=== PATIENT | female | born 1945 | race Caucasian/White ===

== ENCOUNTER → 2016-09-22 | Outpatient (CLI) | payer MEDICARE, OTHER, MEDICAID ==
[~2016-09-22] MED LIST: ALBU2.5V7 AEROSOL; ALEN70TA2 PO; AMIO100T4 PO; AMOX1TAB16 PO; ARFO15VI2 AEROSOL; BUDE0.5A6 INH; BUME0.5T11 PO; BUPR-115 PO; CALC-946 PO; CALC300T37 PO; CALC600T12 PO; CERA453C2 TOP; CRAN1TAB6 PO; CYAN10006 IM; DABI75CA3 PO; DIPH25TA23 PO; DOCU-175 PO; FAMO20TA8 PO; FLUV150C2 PO; GABA-338 PO; GABA-354 PO; GLIP5TAB11 PO; GUAI-1210 PO; HYDR-1372 PO; INSU100V36 SQ; LEVO125T11 PO; LISI2.5T2 PO; LOPE2TAB24 PO; LYSI500T3 PO; MELA1TAB15 PO; OMEP-122 PO; ONDA8TAB8 PO; PROC10TA PO; ROPI1TAB12 PO; SIMV20TA6 PO; SPIR25TA PO; SUCR1TAB PO; TRAM50TA4 PO; TRIA15CR3 TOP; ZOLP5TAB2 PO; [UNRECOGNIZED DRUG - CODE] TOP
[2016-09-22 07:06] LABS: BASOPHILS % (AUTO) 0.8 % (0-2); EOSINOPHILS # (AUTO) 0.4 T/MM3 (0-0.5); EOSINOPHILS % (AUTO) 8.8 % (0-4); HCT - HEMATOCRIT 35.6 % (36-46); HGB - HEMOGLOBIN 11.1 GM/DL (12-16); IMMATURE GRANULOCYTE # (AUTO) 0.01 T/MM3 (0.00-0.03); IMMATURE GRANULOCYTE % (AUTO) 0.2 % (0.0-0.5); LYMPHOCYTES # (AUTO) 1.1 T/MM3 (1-4.8); LYMPHOCYTES % (AUTO) 23.1 % (23-45); MEAN CORPUSCULAR HGB 30.8 UUG (26-34); MEAN CORPUSCULAR HGB CONC(MCHC 31.2 GM/DL (31-37); MEAN CORPUSCULAR VOLUME 98.9 UM3 (80-100); MONOCYTES # (AUTO) 0.6 T/MM3 (0-0.8); MONOCYTES % (AUTO) 11.2 % (0-9.0); NEUTROPHILS #(AUTO)-ABSOLUTE 2.7 T/MM3 (1.8-7.7); NEUTROPHILS % (AUTO) 55.9 % (33-66); WBC - WHITE BLOOD COUNT 4.9 T/MM3 (4.5-11.0)
[2016-09-22 07:26] LABS: ALBUMIN 3.4 G/DL (3.5-5.0); ALBUMIN/GLOBULIN RATIO 0.9 RATIO (1.1-2.2); ALKALINE PHOSPHATASE 137 U/L (38-126); ALT (SGPT) 32 U/L (9-52); ANION GAP 12 MEQ/L (5-15); AST (SGOT) 26 U/L (14-36); BUN/CREATININE RATIO 19 RATIO (6-26); CHLORIDE 104 MEQ/L (98-107); CO2 - CARBON DIOXIDE 27 MEQ/L (22-30); CREATININE 1.3 MG/DL (0.7-1.2); GLOMERULAR FILTRATION RATE 40; GLUCOSE 180 MG/DL (65-110); MAGNESIUM 2.2 MG/DL (1.6-2.3); POTASSIUM 4.1 MEQ/L (3.6-5); SODIUM 143 MEQ/L (134-144); TOTAL PROTEIN 7.1 G/DL (6.3-8.2)
== END ==
LOC: LABNH.AP 02:32
PROVIDERS: ATTEND Family Medicine
DX: N18.3 Chronic kidney disease, stage 3 (moderate) (principal); G25.81 Restless legs syndrome; E53.8 Deficiency of other specified B group vitamins; D53.9 Nutritional anemia, unspecified; I50.9 Heart failure, unspecified
CPT/HCPCS: 36415; 80053; 82306; 82607; 83735; 85025; P9604

== ENCOUNTER → 2016-10-13 | Outpatient (CLI) | payer MEDICARE, OTHER, MEDICAID ==
[2016-10-13 07:37] LABS: BASOPHILS % (AUTO) 0.4 % (0-2); EOSINOPHILS # (AUTO) 0.4 T/MM3 (0-0.5); EOSINOPHILS % (AUTO) 7.7 % (0-4); HCT - HEMATOCRIT 32.9 % (36-46); HGB - HEMOGLOBIN 10.2 GM/DL (12-16); IMMATURE GRANULOCYTE # (AUTO) 0.02 T/MM3 (0.00-0.03); IMMATURE GRANULOCYTE % (AUTO) 0.4 % (0.0-0.5); MEAN CORPUSCULAR HGB 30.5 UUG (26-34); MEAN CORPUSCULAR VOLUME 98.5 UM3 (80-100); MEAN PLATELET VOLUME 11.9 UM3 (9.4-12.4); MONOCYTES # (AUTO) 0.5 T/MM3 (0-0.8); MONOCYTES % (AUTO) 11.7 % (0-9.0); NEUTROPHILS #(AUTO)-ABSOLUTE 2.6 T/MM3 (1.8-7.7); NEUTROPHILS % (AUTO) 56.8 % (33-66); RED BLOOD COUNT 3.34 M/MM3 (4.00-5.20); WBC - WHITE BLOOD COUNT 4.5 T/MM3 (4.5-11.0)
[2016-10-13 07:52] LABS: ANION GAP 11 MEQ/L (5-15); BUN/CREATININE RATIO 19 RATIO (6-26); CALCIUM 8.6 MG/DL (8.4-10.2); CHLORIDE 106 MEQ/L (98-107); CO2 - CARBON DIOXIDE 26 MEQ/L (22-30); CREATININE 1.3 MG/DL (0.7-1.2); GLOMERULAR FILTRATION RATE 40; GLUCOSE 164 MG/DL (65-110); POTASSIUM 3.8 MEQ/L (3.6-5); SODIUM 143 MEQ/L (134-144)
[2016-10-13 08:14] LABS: HEMOGLOBIN A1C 6.1 % (6.1-7.9)
== END ==
LOC: LABNH.AP 00:36
PROVIDERS: ATTEND Internal Medicine Hematology & Oncology
DX: E11.9 Type 2 diabetes mellitus without complications (principal); D53.9 Nutritional anemia, unspecified; D63.1 Anemia in chronic kidney disease; E87.6 Hypokalemia
CPT/HCPCS: 36415; 80048; 83036; 85025; P9604

== ENCOUNTER → 2016-10-20 | Outpatient (CLI) | payer MEDICARE, OTHER, MEDICAID | LOC: NEU 13:48 | PROVIDERS: ATTEND Psychiatry & Neurology Neurology | DX: E11.42 Type 2 diabetes mellitus with diabetic polyneuropathy (principal); G56.03 Carpal tunnel syndrome, bilateral upper limbs; Z79.4 Long term (current) use of insulin | CPT/HCPCS: 95886; 95912 ==

== ENCOUNTER → 2016-11-08 | Outpatient (CLI) | payer MEDICARE, OTHER, MEDICAID ==
[2016-11-08 21:10] LABS: BLOOD, URINE NEGATIVE (NEGATIVE); COLOR,URINE YELLOW (YELLOW); LEUKOCYTE ESTERASE ,URINE NEGATIVE (NEGATIVE); NITRITE,URINE POSITIVE (NEGATIVE)
[2016-11-08 21:30] LABS: BACTERIA,URINE 3+ (NEGATIVE); RBC,URINE 0-1 /HPF (0-3); SQUAMOUS EPITHELIAL CELL,UR NONE SEEN
== END ==
LOC: LABN.AP 21:05
PROVIDERS: ATTEND Family Medicine
DX: R35.0 Frequency of micturition (principal)
CPT/HCPCS: 81001; 87077; 87086; 87186

== ENCOUNTER → 2016-11-10 | Outpatient (CLI) | payer MEDICARE, OTHER, MEDICAID ==
[2016-11-10 09:14] LABS: BASOPHILS % (AUTO) 0.4 % (0-2); EOSINOPHILS # (AUTO) 0.5 T/MM3 (0-0.5); EOSINOPHILS % (AUTO) 11.8 % (0-4); HGB - HEMOGLOBIN 10.9 GM/DL (12-16); IMMATURE GRANULOCYTE # (AUTO) 0.01 T/MM3 (0.00-0.03); IMMATURE GRANULOCYTE % (AUTO) 0.2 % (0.0-0.5); LYMPHOCYTES # (AUTO) 0.9 T/MM3 (1-4.8); LYMPHOCYTES % (AUTO) 18.6 % (23-45); MEAN CORPUSCULAR HGB 31.1 UUG (26-34); MEAN CORPUSCULAR HGB CONC(MCHC 31.1 GM/DL (31-37); MEAN PLATELET VOLUME 11.9 UM3 (9.4-12.4); MONOCYTES # (AUTO) 0.5 T/MM3 (0-0.8); MONOCYTES % (AUTO) 11.8 % (0-9.0); NEUTROPHILS #(AUTO)-ABSOLUTE 2.6 T/MM3 (1.8-7.7); NEUTROPHILS % (AUTO) 57.2 % (33-66); WBC - WHITE BLOOD COUNT 4.6 T/MM3 (4.5-11.0)
[2016-11-10 09:21] LABS: ALBUMIN 3.4 G/DL (3.5-5.0); ALBUMIN/GLOBULIN RATIO 0.9 RATIO (1.1-2.2); ALKALINE PHOSPHATASE 163 U/L (38-126); ALT (SGPT) 37 U/L (9-52); AST (SGOT) 29 U/L (14-36); TOTAL PROTEIN 7.1 G/DL (6.3-8.2)
== END ==
LOC: LABNH.AP 00:30
PROVIDERS: ATTEND Internal Medicine Hematology & Oncology
DX: D53.9 Nutritional anemia, unspecified (principal); D63.1 Anemia in chronic kidney disease; E78.5 Hyperlipidemia, unspecified
CPT/HCPCS: 36415; 80076; 85025; P9604

== ENCOUNTER → 2016-11-17 | Outpatient (CLI) | payer MEDICARE, OTHER, MEDICAID ==
[2016-11-17 08:08] LABS: BASOPHILS % (AUTO) 0.5 % (0-2); EOSINOPHILS # (AUTO) 0.4 T/MM3 (0-0.5); EOSINOPHILS % (AUTO) 7.2 % (0-4); HCT - HEMATOCRIT 36.7 % (36-46); HGB - HEMOGLOBIN 11.1 GM/DL (12-16); IMMATURE GRANULOCYTE # (AUTO) 0.01 T/MM3 (0.00-0.03); IMMATURE GRANULOCYTE % (AUTO) 0.2 % (0.0-0.5); LYMPHOCYTES # (AUTO) 1.5 T/MM3 (1-4.8); LYMPHOCYTES % (AUTO) 25.7 % (23-45); MEAN CORPUSCULAR HGB 30.6 UUG (26-34); MEAN CORPUSCULAR HGB CONC(MCHC 30.2 GM/DL (31-37); MEAN CORPUSCULAR VOLUME 101.1 UM3 (80-100); MEAN PLATELET VOLUME 12.3 UM3 (9.4-12.4); MONOCYTES # (AUTO) 0.6 T/MM3 (0-0.8); MONOCYTES % (AUTO) 10.2 % (0-9.0); NEUTROPHILS #(AUTO)-ABSOLUTE 3.2 T/MM3 (1.8-7.7); NEUTROPHILS % (AUTO) 56.2 % (33-66); RED BLOOD COUNT 3.63 M/MM3 (4.00-5.20); WBC - WHITE BLOOD COUNT 5.7 T/MM3 (4.5-11.0)
== END ==
LOC: LABNH.AP 00:14
PROVIDERS: ATTEND Family Medicine
DX: E11.9 Type 2 diabetes mellitus without complications (principal)
CPT/HCPCS: 36415; 83036; 85025; P9604

== ENCOUNTER 2017-02-11 16:38 | Inpatient (IN) ==
--- NOTE | 2017-02-11 16:56 | Emergency Department Report ---
General Adult HPI - General Chief complaint: Shortness of Breath/Dyspnea Stated complaint: SOA,Low Blood Sugar Time Seen by Provider: 02/11/17 16:56 Source: patient Mode of arrival: EMS Limitations: no limitations - History of Present Illness HPI narrative: Patient presents from a local nursing facility due to increased difficulty breathing, dyspnea and ongoing UTI. Patient also had episode of hypoglycemia today inspite of normal po intake. Patient takes glipizide which she had this AM but states she ate today. She had reported low blood sugar throughout the day which responded with po intake EMS recorded a blood sugar ORE DIGGER of 38 which responded with 1/2 amp D50 and blood sugar 108. Blood sugar shortly after is 74. Patient is alert and oriented upon arrival but is obviously dyspneic with conversing. Her room air sats are mid 90's . She is speaking in 4 word sentences. Denies chest pain. MD complaint: low blood sugar, dyspnea, - Related Data Home Medications Medication Instructions Recorded Confirmed Arformoterol Neb [Brovana Neb] 15 mcg AEROSOL BID #0 09/19/12 02/11/17 Levothyroxine Sodium 125 mcg PO DAILY #0 06/03/14 02/11/17 Simvastatin 20 mg PO HS #0 06/03/14 02/11/17 Spironolactone [Aldactone] 25 mg PO DAILY #0 12/26/14 02/11/17 Triamcinolone 0.25% Cream 15G 1 applic TOP DAILY PRN #0 12/26/14 02/11/17 [Kenalog] Alendronate Sodium [Fosamax] 70 mg PO QFRIDAY #0 05/18/15 02/11/17 Dabigatran Etexilate Mesylate 75 mg PO BID #0 05/18/15 02/11/17 [Pradaxa] Amiodarone HCl 100 mg PO DAILY #0 07/18/15 02/11/17 Cyanocobalamin (B-12) [Vit. B-12] 1,000 mcg IM MONTHLY #0 07/18/15 02/11/17 Albuterol Sulfate 2.5 mg AEROSOL Q4H PRN #0 10/10/15 02/11/17 Tramadol HCl 50 mg PO Q6HR PRN #0 10/10/15 02/11/17 Gabapentin 300 mg PO TID #0 02/03/16 02/11/17 Ondansetron [Zofran Odt] 8 mg PO Q8H PRN #0 02/03/16 02/11/17 buPROPion HCl [Wellbutrin Xl] 150 mg PO DAILY #0 02/03/16 02/11/17 glipiZIDE [Glipizide] 5 mg PO BID #0 02/03/16 02/11/17 Ceramides 1,3,6-11 [Cerave] 1 applic TOP TUFR #0 02/10/16 02/11/17 Gabapentin 400 mg PO BID #0 02/10/16 02/11/17 Loperamide HCl [Loperamide] 2 mg PO Q6H PRN #0 02/10/16 02/11/17 Lysine 1,000 mg PO QID PRN #0 02/10/16 02/11/17 Melatonin/Pyridoxine HCl (B6) 1 mg PO HS PRN #0 02/10/16 02/11/17 [Melatonin 1 mg Tablet] Urea/Allantoin/Vit E Acetate 1 applic TOP HS #0 02/10/16 02/11/17 [Flexitol Heel [place] Cream] diphenhydrAMINE HCl 25 mg PO Q6H PRN #0 02/10/16 02/11/17 [Diphenhydramine HCl] Acetaminophen 650 mg PO Q4H PRN 02/11/17 02/11/17 Budesonide [Budesonide] 0.5 mg AEROSOL Q12H 02/11/17 02/11/17 CALCIUM CARBONATE Chewable [Tums 750 mg PO QID PRN 02/11/17 02/11/17 Extra Strength] Calcium Carbonate/Vitamin D3 1 tab PO DAILY 02/11/17 02/11/17 [Caltrate 600 Plus D3 Tablet] Citalopram [Celexa] 30 mg PO DAILY 02/11/17 02/11/17 Fluticasone Nasal [place] [Flonase] 1 spray EA NOSTRIL DAILY 02/11/17 02/11/17 Furosemide [Lasix] 20 mg PO DAILY 02/11/17 02/11/17 Lidocaine/Prilocaine [EMLA 5gm] 1 applic TOP QID 02/11/17 02/11/17 Nystatin Powder [Mycostatin] 1 applic TP BID PRN 02/11/17 02/11/17 Nystatin Powder [Mycostatin] 1 applic TP TID 02/11/17 02/11/17 Pantoprazole Tab [Protonix Tab] 40 mg PO DAILY 02/11/17 02/11/17 Ropinirole HCl 1 mg PO BID 02/11/17 02/11/17 Sulfamethox/Tmp [Bactrim Ds] 1 tab PO Q12H 02/11/17 02/11/17 Trazodone [Desyrel] 25 mg PO BID PRN 02/11/17 02/11/17 guaiFENesin [Mucinex] 1,200 mg PO Q12H PRN 02/11/17 02/11/17 Allergies Allergy/AdvReac Type Severity Reaction Status Date / Time diltiazem Allergy Unknown Verified 02/11/17 17:12 flecainide Allergy Unknown PATIENT Verified 02/11/17 17:12 DENIES nitrofurantoin Allergy Unknown ITCHING Verified 02/11/17 17:12 oxycodone AdvReac Intermediate Hallucinati Verified 02/11/17 17:13 ng PFS Patient Stated Medical History Cerebrovascular Accident Yes: 2015 Other HEENT Yes: WEARS GLASSES Cardiac Arrhythmia Yes: AFIB Congestive Heart Failure Yes Coronary Artery Disease Yes Other Cardiology Yes: VARICOSE VEIN STRIPPING Asthma Yes Bronchitis Yes Chronic Obstructive Pulmonary Yes Disease (COPD) Pneumonia Yes Sleep Apnea Yes Diabetes Mellitus Type 2 Yes Gastroesophageal Reflux Yes Disease Hiatal Hernia Yes Hx Incontinence Yes Hx Renal Disease Yes Hx Urinary Tract Infection Yes Anemia Yes Osteoarthritis Yes Other Yes: POSSIBLE LEUKEMIA Depression Yes Physical Exam - Limitations Limitations: no limitations - General General appearance: alert - Normal Exams: Head:: Normocephalic without trauma Eyes:: Pupils are PERRLA w/ EOMI, No scleral icterus, irritation, or foreign bodies noted ENMT:: No facial trauma, nasal exudates, pharyngeal erythema, or exudates are noted Neck:: Full range of motion, without adenopathy, JVD, bruits or thyromegaly Lymphatic:: No lymphadenopathy, or lymphedema noted Musculoskeletal:: No tenderness, or deformity noted, good range of motion, all extremities Integumentary:: No rashes, hives, or bruising noted, hair and nails, without abnormality Psychiatric:: Patient exhibits, appropriate attention, emotion and affect - Respiratory Respiratory exam: Present: other (patient appears dyspneic, lungs have crackles bilaterall posteriorly with exp wheezing ) - Rectal Exam Rectal exam: Present: normal inspection, normal rectal tone, heme (-) stool Course - Reevaluation(s) Reevaluation #1: Blood sugar after snack of crackers and peanut butter 111. Sats remain at 95 % room air. CXR indicates CHF exacerbation compared to prior xray and BNP is 2200. Bumex [address] Gonzalez is aware of findings and agrees with treatment plan. Patient has chronic anemia - Consultations Consultation #1: Dr Huff, will admit patient for exacerbation of CHF, dyspnea Vital Signs Temperature 97.2 F 02/11/17 16:40 Pulse Rate 67 02/11/17 16:40 Respiratory Rate 25 H 02/11/17 16:40 Blood Pressure 110/45 02/11/17 16:40 Pulse Oximetry 93 02/11/17 16:40 Temperature 98.4 F 02/11/17 23:44 Pulse Rate 69 02/11/17 23:44 Respiratory Rate 22 02/11/17 23:44 Blood Pressure 112/55 02/11/17 23:44 Pulse Oximetry 94 02/11/17 23:44 Medical Decision Making - Lab Data Result diagrams: 02/11/17 17:17 02/11/17 17:17 Lab Results 02/11/17 02/11/17 02/11/17 Range/Units 16:50 17:17 17:17 WBC 7.1 (4.5-11.0) T/MM3 RBC 2.68 L (4.00-5.20) M/MM3 Hgb 8.3 L (12-16) GM/DL Hct 27.5 L (36-46) % MCV 102.6 H (80-100) UM3 MCH 31.0 (26-34) UUG MCHC 30.2 L (31-37) GM/DL RDW Std Deviation 50.9 H (36.9-50.2) FL Plt Count 161 (130-400) T/MM3 MPV 10.8 (9.4-12.4) UM3 Immature Gran % (Auto) 0.3 (0.0-0.5) % Neut % (Auto) 77.8 H (33-66) % Lymph % (Auto) 10.5 L (23-45) % [place] % (Auto) 10.7 H (0-9.0) % Eos % (Auto) 0.6 (0-4) % Baso % (Auto) 0.1 (0-2) % Neut # 5.5 (1.8-7.7) T/MM3 Lymph # 0.8 L (1-4.8) T/MM3 [place] # 0.8 (0-0.8) T/MM3 Eos # 0.0 (0-0.5) T/MM3 Baso # 0.0 (0-0.2) T/MM3 Abs Immat Gran (auto) 0.02 (0.00-0.03) T/MM3 Turbidity < 20 (0-20) Sodium 140 (134-144) MEQ/L Potassium 4.0 (3.6-5) MEQ/L Chloride 105 (98-107) MEQ/L Carbon Dioxide 25 (22-30) MEQ/L Anion Gap 10 (5-15) MEQ/L BUN 22.0 H (7-17) MG/DL Creatinine 1.8 H (0.7-1.2) MG/DL GFR Calculation 28 BUN/Creatinine Ratio 12 (6-26) RATIO Glucose 74 (65-110) MG/DL Glucometer 108 (65-110) mg/dL Calculated Osmolality 271 (261-280) MOSM/KG Calcium 8.0 L (8.4-10.2) MG/DL Total Bilirubin 0.50 (0.20-1.30) MG/DL Icterus Index < 2 (0-7) AST 23 (14-36) U/L ALT 33 (9-52) U/L Alkaline Phosphatase 159 H (38-126) U/L Troponin I < 0.012 (0-0.12) ng/ml B-Natriuretic Peptide 2220 H (0-175) pg/mL Total Protein 7.0 (6.3-8.2) G/DL Albumin 3.4 L (3.5-5.0) G/DL Globulin 3.6 (2.4-3.6) G/DL Albumin/Globulin Ratio 0.9 L (1.1-2.2) RATIO Specimen Hemolysis < 15 (0-25) Ur Collection Type Urine Color (YELLOW) Urine Clarity Urine pH (5.0-8.0) Ur Specific [place] (1.015-1.025) Urine Protein (NEGATIVE) Urine Glucose (UA) (NEGATIVE) Urine Ketones (NEGATIVE) Urine Occult Blood (NEGATIVE) Urine Nitrate (NEGATIVE) Urine Bilirubin (NEGATIVE) Urine Urobilinogen (NORMAL) EU/DL Ur Leukocyte Esterase (NEGATIVE) Urine RBC (0-3) /HPF Urine WBC (0-5) /HPF Ur Squamous Epith Cells Urine Bacteria (NEGATIVE) Ur Culture Indicated? 02/11/17 02/11/17 02/11/17 Range/Units 17:23 17:43 18:23 WBC (4.5-11.0) T/MM3 RBC (4.00-5.20) M/MM3 Hgb (12-16) GM/DL Hct (36-46) % MCV (80-100) UM3 MCH (26-34) UUG MCHC (31-37) GM/DL RDW Std Deviation (36.9-50.2) FL Plt Count (130-400) T/MM3 MPV (9.4-12.4) UM3 Immature Gran % (Auto) (0.0-0.5) % Neut % (Auto) (33-66) % Lymph % (Auto) (23-45) % [place] % (Auto) (0-9.0) % Eos % (Auto) (0-4) % Baso % (Auto) (0-2) % Neut # (1.8-7.7) T/MM3 Lymph # (1-4.8) T/MM3 [place] # (0-0.8) T/MM3 Eos # (0-0.5) T/MM3 Baso # (0-0.2) T/MM3 Abs Immat Gran (auto) (0.00-0.03) T/MM3 Turbidity (0-20) Sodium (134-144) MEQ/L Potassium (3.6-5) MEQ/L Chloride (98-107) MEQ/L Carbon Dioxide (22-30) MEQ/L Anion Gap (5-15) MEQ/L BUN (7-17) MG/DL Creatinine (0.7-1.2) MG/DL GFR Calculation BUN/Creatinine Ratio (6-26) RATIO Glucose (65-110) MG/DL Glucometer 85 111 (65-110) mg/dL Calculated Osmolality (261-280) MOSM/KG Calcium (8.4-10.2) MG/DL Total Bilirubin (0.20-1.30) MG/DL Icterus Index (0-7) AST (14-36) U/L ALT (9-52) U/L Alkaline Phosphatase (38-126) U/L Troponin I (0-0.12) ng/ml B-Natriuretic Peptide (0-175) pg/mL Total Protein (6.3-8.2) G/DL Albumin (3.5-5.0) G/DL Globulin (2.4-3.6) G/DL Albumin/Globulin Ratio (1.1-2.2) RATIO Specimen Hemolysis (0-25) Ur Collection Type Urine, clean catch Urine Color Yellow (YELLOW) Urine Clarity Clear Urine pH 5.5 (5.0-8.0) Ur Specific [place] 1.015 (1.015-1.025) Urine Protein Negative (NEGATIVE) Urine Glucose (UA) Negative (NEGATIVE) Urine Ketones Negative (NEGATIVE) Urine Occult Blood Negative (NEGATIVE) Urine Nitrate Positive A (NEGATIVE) Urine Bilirubin Negative (NEGATIVE) Urine Urobilinogen 1.0 (NORMAL) EU/DL Ur Leukocyte Esterase Negative (NEGATIVE) Urine RBC None seen (0-3) /HPF Urine WBC 1-3 (0-5) /HPF Ur Squamous Epith Cells 0-5 Urine Bacteria 3+ H (NEGATIVE) Ur Culture Indicated? Cult reflexed &setup Disposition Clinical Impression: Congestive heart failure Qualifiers: Congestive heart failure type: unspecified congestive heart failure type Congestive heart failure chronicity: acute on chronic Qualified Code(s): I50.9 - Heart failure, unspecified Hypoglycemia secondary to sulfonylurea Qualifiers: Encounter type: initial encounter Injury intent: undetermined intent Qualified Code(s): T38.3X4A - Poisoning by insulin and oral hypoglycemic [antidiabetic] drugs, undetermined, initial encounter Anemia Qualifiers: Anemia type: unspecified type Qualified Code(s): D64.9 - Anemia, unspecified Disposition: 02 To [facility] Acute Care Condition: Stable Time of Disposition: 18:47 - Seen By: midlevel
[2017-02-11] MEDS ORDERED: ALBUTEROL/IPRATROPIUM 2.5mg-0.5mg/3ml NEB IH ONE (17:07)
[2017-02-11] MEDS ORDERED: BUMETANIDE 2.5mg/10ml INJECTION IVP ONE (18:06)
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
[2017-02-11] MEDS ORDERED: ACETAMINOPHEN 325 MG TABLET PO PRN (20:29)
[2017-02-11] MEDS ORDERED: HEPARIN 5,000unit/ml 1ml INJECTION SUB-Q SCH (20:29)
[2017-02-11] MEDS ORDERED: MORPHINE SULFATE 2 MG SYRINGE IVP PRN (20:29)
[2017-02-11] MEDS ORDERED: CALCIUM CARBONATE Chewable 500mg TABLET PO PRN (20:29)
[2017-02-11] MEDS ORDERED: SENNA + DOCUSATE TABLET PO PRN (20:29)
[2017-02-11] MEDS ORDERED: GUAIFENESIN LA 600 MG TABLET PO PRN (22:28)
[2017-02-11] MEDS ORDERED: TRIAMCINOLONE 0.025% CREAM 15 G TUBE TOP PRN (22:28)
[2017-02-11] MEDS ORDERED: MELATONIN 1 MG TABLET PO PRN (22:28)
[2017-02-11] MEDS ORDERED: LYSINE 500 MG TABLET PO PRN (22:28)
[2017-02-11] MEDS ORDERED: CALCIUM CARBONATE Chewable 750mg TABLET PO PRN (22:28)
[2017-02-11] MEDS ORDERED: DiphenhydrAMINE 25 MG CAPSULE PO PRN (22:28)
[2017-02-11] MEDS ORDERED: ALBUTEROL 2.5mg/3ml (0.083%) NEB AEROSOL PRN (22:28)
[2017-02-11] MEDS ORDERED: TRAZODONE 50 MG TABLET PO PRN (22:28)
[2017-02-11] MEDS ORDERED: LOPERAMIDE 2 MG CAPSULE PO PRN (22:28)
[2017-02-11] MEDS: BUDESONIDE INH.SOLN 0.5mg/2ml NEB AEROSOL SCH (22:41)
[2017-02-11] MEDS: ALBUTEROL/IPRATROPIUM 2.5mg-0.5mg/3ml NEB AEROSOL PRN (22:42)
[2017-02-11] MEDS ORDERED: ONDANSETRON 4 MG/2 ML INJECTION IVP PRN (23:34)
[2017-02-12] MEDS: BUDESONIDE INH.SOLN 0.5mg/2ml NEB AEROSOL SCH ×2 (08:39→20:44)
[2017-02-12] MEDS: ALBUTEROL/IPRATROPIUM 2.5mg-0.5mg/3ml NEB AEROSOL PRN ×2 (08:39→20:45)
[2017-02-12] MEDS ORDERED: DABIGATRAN 75 MG PO SCH (09:00)
[2017-02-12] MEDS: CITALOPRAM 20 MG TABLET PO SCH (09:13)
[2017-02-12] MEDS: CEFPODOXIME 200mg TABLET PO SCH ×2 (09:14→18:05)
[2017-02-12] MEDS: BuPROPion XL 150mg (24HR) TABLET PO SCH (09:14)
[2017-02-12] MEDS: CALCIUM 600 + VIT D 400 TABLET PO SCH (09:14)
[2017-02-12] MEDS: GABAPENTIN 300 MG CAPSULE PO SCH ×3 (09:14→20:18)
[2017-02-12] MEDS: ROPINIROLE 1 MG TABLET PO SCH ×2 (09:14→20:18)
[2017-02-12] MEDS: AMIODARONE 200 MG TABLET PO SCH (09:15)
[2017-02-12] MEDS: FLUTICASONE NASAL SPRAY 50mcg EA NOSTRIL SCH (09:16)
[2017-02-12] MEDS: SPIRONOLACTONE 25 MG TABLET PO SCH (09:16)
[2017-02-12] MEDS: LEVOTHYROXINE 125 MCG TABLET PO SCH (09:26)
[2017-02-12] MEDS: FUROSEMIDE 40 MG/4 ML INJECTION IVP SCH ×2 (09:29→18:05)
[2017-02-12] MEDS: CERAMIDES PO SCH (09:42)
--- NOTE | 2017-02-12 10:30 | XRay Report ---
Indication: chf follow up XR chest 2V: Comparison: 02/11 2017 Technique: 2 view chest Findings: Patient continues to show mild cardiac prominence. This is remains similar to the previous study. Patient also shows mildly increased basilar pulmonary markings without focal prequel consolidations or significant pleural effusions. Mild rotoscoliosis persists. Postoperative changes are identified below the diaphragm in the left upper quadrant. Impression: Continued mild cardiac prominence with increased basilar pulmonary markings which are similar to prior exam. .
[2017-02-12] MEDS: ARFORMOTEROL NEB 15mcg/2ml AEROSOL SCH (10:34)
[2017-02-12] MEDS: LIDOCAINE 2.5%/PRILOCAINE 2.5% CREAM 5gm TOP SCH ×4 (10:42→20:18)
[2017-02-12] MEDS ORDERED: D10W 250 ML IV SCH (11:29)
[2017-02-12] MEDS ORDERED: CYANOCOBALAMIN (B-12) 1,000mcg/ml INJECTION IM SCH (12:00)
[2017-02-12] MEDS: D10W 1,000 ML IV SCH (13:46)
[2017-02-12] MEDS ORDERED: FALL RISK - PHARMACY CONSULT XX ONE (15:55)
[2017-02-12] MEDS ORDERED: GLUCOSE ORAL GEL 40% 37.5gm PO PRN (17:31)
[2017-02-12] MEDS ORDERED: DEXTROSE 50% SYRINGE 50ml (1 AMP) IVP PRN (17:31)
[2017-02-12] MEDS: SIMVASTATIN 20 MG TABLET PO SCH ×2 (20:18→21:02)
[2017-02-12] MEDS ORDERED: [UNRECOGNIZED DRUG - OTHER] PO SCH (22:00)
[2017-02-13] MEDS: LEVOTHYROXINE 125 MCG TABLET PO SCH (06:03)
[2017-02-13] MEDS: ACETAMINOPHEN 325 MG TABLET PO PRN ×2 (08:24→15:08)
[2017-02-13] MEDS: SALINE FLUSH 10ml SYRINGE IVF PRN ×2 (09:01→16:47)
[2017-02-13] MEDS: FLUTICASONE NASAL SPRAY 50mcg EA NOSTRIL SCH (09:01)
[2017-02-13] MEDS: FUROSEMIDE 40 MG/4 ML INJECTION IVP SCH ×2 (09:01→16:47)
[2017-02-13] MEDS: BuPROPion XL 150mg (24HR) TABLET PO SCH (09:02)
[2017-02-13] MEDS: AMIODARONE 200 MG TABLET PO SCH (09:02)
[2017-02-13] MEDS: CEFPODOXIME 200mg TABLET PO SCH (09:02)
[2017-02-13] MEDS: CALCIUM 600 + VIT D 400 TABLET PO SCH (09:02)
[2017-02-13] MEDS: CITALOPRAM 20 MG TABLET PO SCH (09:02)
[2017-02-13] MEDS: GABAPENTIN 300 MG CAPSULE PO SCH ×3 (09:02→21:46)
[2017-02-13] MEDS: SPIRONOLACTONE 25 MG TABLET PO SCH (09:02)
[2017-02-13] MEDS: ROPINIROLE 1 MG TABLET PO SCH ×2 (09:02→21:46)
[2017-02-13] MEDS: LIDOCAINE 2.5%/PRILOCAINE 2.5% CREAM 5gm TOP SCH (10:15)
[2017-02-13] MEDS: D10W 1,000 ML IV SCH (10:41)
[2017-02-13] MEDS: AMOX/CLAV 500 MG/125 MG TABLET PO SCH ×2 (10:46→16:47)
[2017-02-13] MEDS: TRAMADOL 50 MG TABLET PO PRN ×3 (10:47→22:56)
--- NOTE | 2017-02-13 14:42 | CT Scan Report ---
Indication: Class IV CHF symptoms with normal LVEF in a pt with COPD CT chest high res: Comparison: Chest radiograph 02/12/2017 Technique: Nonenhanced axial imaging provided with dose reduction imaging technology from above the thoracic inlet to below the diaphragms. Reformatted sagittal and coronal images are provided. Findings: Patient demonstrates normal heart size. Lungs failed to show significant acute abnormality. Very minimal increased basilar markings are seen which could represent either minimal atelectasis or scarring. No typical pattern of interstitial pulmonary fibrosis is identified. No pleural reaction or bronchiectasis noted. No masses or significant consolidations are seen. No pathologic adenopathy is seen. Patient shows postoperative changes involving the upper abdomen. Reformatted imaging showed rotoscoliosis and degenerative changes in the thoracolumbar spine with bridging osteophytes and multilevel degenerative disc changes. No acute vertebral body fractures identified. Impression: 1. Patient is only mild chronic appearing changes in the bases with no significant mass, consolidation or significant suggestion of pulmonary fibrosis. 2. Significant postoperative changes in the upper abdomen. .
--- NOTE | 2017-02-13 14:58 | Progress Note ---
Subjective: Pt is still fairly SOB. I asked her to walk a bit with me. Her resting HR was 48 to 50. Pt is anemic. The only negative inotrope is Amiodarone. Pt ambulated about 60 feet. First 30, had to stop due to SOB - her HR was up to 73 then she walked back to bed, her HR quickly came back to the 50's Objective Vital signs: Temperature 97.7 F 02/13/17 08:00 Pulse Rate 53 L 02/13/17 08:00 Respiratory Rate 18 02/13/17 09:52 Blood Pressure 129/69 02/13/17 08:00 Pulse Oximetry 93 02/13/17 09:52 Oxygen Delivery Method Room Air Rhythm: Sinus Bradycardia Weight: 93.3 kg - Constitutional Present: mild distress - Routine HEENT Exam Head: Present: normocephalic, atraumatic Eye: Present: EOMI, PERRL - Routine Respiratory Exam Present: dyspnea - Routine Cardiovascular Exam Present: RRR - Routine Abdominal Exam Present: soft, non distended, non tender - Routine Extremities Exam Absent: cyanosis, clubbing, edema - Routine Neurological Exam Present: alert, oriented X3, CN II-XII intact - Routine Psychiatric Exam Present: normal affect Results - Labs CBC & Chem 7: 02/13/17 04:01 02/13/17 04:01 - ABG Interpretation ABG results: 02/11/17 02/13/17 23:43 05:04 ABG pH 7.450 ABG pCO2 42 ABG pO2 78 L ABG HCO3 29 H ABG Total CO2 30.5 H ABG O2 Saturation 96.0 ABG Base Excess 4.7 H VBG pH 7.480 H VBG pCO2 34 L VBG pO2 69 H VBG HCO3 25 VBG Total CO2 26.3 VBG O2 Saturation 95.0 VBG Base Excess 2.1 H Assessment and Plan (1) Congestive heart failure Current visit: Yes Status: Acute this appears acute, i'm unclear if systolic or diastolic. she is receiving 1 mg of bumex iv in the emergency room. we'll order lasix 40 mg iv every 12 hours, the next dose to be in the late evening tonight. echocardiogram should be performed when he can, probably won't be able to do this weekend. daily weights, dietary review. rule out mi with serial enzymes, tele. She has confounding issues of elevated creatinine from baseline kidney dz and Bactrim. She has lung dx (probably from 2nd hand smoke expsure) and recently untreated SWATI. Will give more lasix tomorrow am but leery of creat worsening. This could be multifactorial [place] and not just simply CHF (probably is) 02/11/17 19:24 02/12/17 00:11 (2) Hypoglycemia secondary to sulfonylurea Current visit: Yes Status: Acute 02/12/17 00:16 i suspect this is worse because of her increased creatinine couple with probably a bit high of a dose for her. 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 she receives iron infusions approximately monthly, sounds like she had a couple in the past month. this is probably stable 02/12/17 00:13 (4) DMII (diabetes mellitus, type 2) Current visit: Yes Status: Acute 02/11/17 19:20 accu-cheks before meals and at bedtime with correctional insulin if needed, like to avoid dextrose infusion if we can with her fluid issues. check a1c we haven't in a while (5) Acute renal failure Current visit: Yes Status: Acute 02/11/17 19:31 will need to monitor her creatinine closely with diuresis. her creatinine is probably elevated from the bactrim dosing.could be related with exacerbation, as well as her hypoglycemia. probably should not prescribe further oral hypoglycemic agents with elevated creatinine 71-year-old female. 02/12/17 00:17 (6) CKD (chronic kidney disease) stage 3, GFR 30-59 ml/min Current visit: Yes Status: Acute (7) Afib Current visit: Yes Status: Acute 02/12/17 00:17 continue amiodarone, hold pradaxa with creat cl less than 30, would consider other like eliquis with age, renal dz (8) CAD (coronary artery disease) Current visit: Yes Status: Acute (9) COPD (chronic obstructive pulmonary disease) Current visit: Yes Status: Acute 02/12/17 00:18 continue her nebulizers treatments along with her inhalers, is probably somewhat contributory to her shortness of breath in addition to relatively untreated sleep apnea and the congestive heart failure. i don't think this is worth giving steroids through the iv or prednisone at this point. (10) SWATI (obstructive sleep apnea) Current visit: Yes Status: Acute Assessment and Plan: Summary - Andressa is a 71 YO female with H.O CHF that came with symptoms suggestive of worsening CHF. She also has chronic anemia. She states she has "the beggining stages of COPD". Her 2-D echo did not show L ventricular dysfunction. Diagnosis 1) Dyspnea on exertion - severely limiting her activities. Does not appear to be caused by CHF or by lung disease (reports are pending) a) CHF - Per verbal report of 2-D echo pt LVEF is normal - Pt is on Amidarone and despite the fact she is anemic she will not get tachycardic with activiy. She will first get very dyspneic. - Suspect her SOB is multifactorial with inability to increase her HR - probably related to Amidarone - a part of this. I have STOPPED HER AMIODARONE. Please watch for tachycardia (Unlikely due to very long half life of amiodarone ) - HRCT - No report - I do not see any obvious abnormalities, of course if pt has amiodarone lung disease, pulm fibrosis or other causes to explain her SOB she would need appropriate therapy. - Final reports of CT chest and Echo pending. b) COPD - Get old records, consider checking PFT's 2) CKD ? pt with chronic anemia. - Check Erythropoietin level - due to her chronic anemia. 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 4) UTI - Due to E Coli sensitive to Augmentin - Culture is final now. - Placed on Augmentin x 5 days. 5) Polypharmacy (Since admission 13 medications have been stopped) - MEDS STOPPED ON 02/13 - Today EMLA was stopped - pt stated did not know why she was on this and Amiodarone was stopped. - MEDS STOPPED ON 02/12 1) Tylenol - duplicated 2) Albuterol and Duonebs 3) Brovana - stopped. 4) Calcium - 3 different doses - cancelled 2 5) Nystatin - 2 orders cancelled 1 6) Pt is on both laxative (Senna) and Antimotility agents - Loperamide - Stopped both 7) Pt is on 2 different emolient creams - Ceramides and Urea lotion - stopped urea lotion 8) Her oral hypoglycemic medication was D/C due to hypoglycemia. - Time spent with patient 25 - 35 minutes Sepsis Assessment - Evaluation Sepsis screening result: No Definite Risk Hospital Course Summary Disclaimer: The visit summary below is not to be considered part of the above Progress Note.
[2017-02-13] MEDS: ALBUTEROL/IPRATROPIUM 2.5mg-0.5mg/3ml NEB AEROSOL PRN (19:18)
[2017-02-13] MEDS: BUDESONIDE INH.SOLN 0.5mg/2ml NEB AEROSOL SCH (19:18)
[2017-02-13] MEDS: INSULIN ASPART 100unit/ml INJECTION SQ PRN (21:46)
[2017-02-13] MEDS: SIMVASTATIN 20 MG TABLET PO SCH (21:46)
[2017-02-14] MEDS: ACETAMINOPHEN 325 MG TABLET PO PRN ×2 (04:15→10:21)
[2017-02-14] MEDS: LEVOTHYROXINE 125 MCG TABLET PO SCH (05:55)
[2017-02-14] MEDS: TRAMADOL 50 MG TABLET PO PRN ×3 (06:05→21:28)
--- NOTE | 2017-02-14 07:51 | Echocardiogram ---
DATE OF PROCEDURE February 12, 2017 This is a two-dimensional echo with spectral Doppler, color-flow and M-mode. Left atrium is dilated. Left ventricular end-diastolic dimension is normal. Left ventricle wall thickness is increased. LV systolic function is normal with ejection fraction of 55%. Right atrium is normal. Right ventricle is normal. Aortic root dimension is normal. Mitral annulus is calcified. Mitral valve leaflets are normal with mild mitral regurgitation. Aortic valve shows fibrocalcific changes with no stenosis or insufficiency. Tricuspid valve shows mild tricuspid regurgitation. Pulmonary valve shows no pulmonary insufficiency. There is no pericardial effusion. IMPRESSION 1. Normal LV systolic function with ejection fraction of about 55%. 2. Mitral annulus calcification with mild mitral regurgitation. 3. Aortic sclerosis. 4. Left ventricular hypertrophy. 5. Left atrial dilation. 6. Mild tricuspid regurgitation. MTDD
[2017-02-14] MEDS: FLUTICASONE NASAL SPRAY 50mcg EA NOSTRIL SCH (08:39)
[2017-02-14] MEDS: CITALOPRAM 20 MG TABLET PO SCH (08:39)
[2017-02-14] MEDS: BuPROPion XL 150mg (24HR) TABLET PO SCH (08:40)
[2017-02-14] MEDS: AMOX/CLAV 500 MG/125 MG TABLET PO SCH ×2 (08:40→16:53)
[2017-02-14] MEDS: SPIRONOLACTONE 25 MG TABLET PO SCH (08:40)
[2017-02-14] MEDS: GABAPENTIN 300 MG CAPSULE PO SCH ×3 (08:40→21:29)
[2017-02-14] MEDS: CALCIUM 600 + VIT D 400 TABLET PO SCH (08:40)
[2017-02-14] MEDS: ROPINIROLE 1 MG TABLET PO SCH ×2 (08:40→21:28)
[2017-02-14] MEDS ORDERED: ONDANSETRON 4 MG/2 ML INJECTION IVP PRN (14:14)
[2017-02-14] MEDS: SALINE FLUSH 10ml SYRINGE IVF PRN (14:17)
--- NOTE | 2017-02-14 14:38 | Progress Note ---
Subjective: F/U: Acute on chronic diastolic/valvular heart failure. Having significant nausea this afternoon-not uncommon for this to occur at home (certain foods do not agree with her). Notes her legs are more uncomfortable and painful-needing tramadol for relief. Breathing is markedly better-not SOA at rest, and only mild SOA when active. Notes some cough, but no sputum. No nasal/sinus congestion or pressure. Denies chest pressure or pain. No f/c. Objective Vital signs: Temperature 96.7 F L 02/14/17 07:46 Pulse Rate 56 L 02/14/17 07:46 Respiratory Rate 18 02/14/17 11:10 Blood Pressure 120/67 02/14/17 07:46 Pulse Oximetry 93 02/14/17 11:10 Oxygen Delivery Method Room Air Fraction of Inspired Oxygen 21 Weight: 96.7 kg - Constitutional Present: mild distress, well nourished, well developed, obese, other (Legs appear quite restless. ) - Routine HEENT Exam Head: Present: normocephalic, atraumatic Eye: Present: EOMI, PERRL ENT: Present: mucous membranes moist - Routine Respiratory Exam Present: decreased breath sounds, distant breath sounds, diminished air movement. Absent: respiratory distress, wheezes, crackles - Routine Cardiovascular Exam Present: no murmur, bradycardia - Routine Abdominal Exam Present: soft, normoactive bowel sounds, non distended, non tender - Routine Exam Comments: Ryan present - Routine Extremities Exam Present: no edema. Absent: cyanosis, clubbing - Routine Musculoskeletal Exam Musculoskeletal: Present: no clubbing or cyanosis - Routine Skin Exam Present: intact, warm. Absent: mottling - Routine Neurological Exam Present: alert, oriented X3, CN II-XII intact, vision grossly intact, hearing grossly intact. Absent: motor deficit - Routine Psychiatric Exam Present: normal affect, normal thought process, cooperative, good insight, good judgment Results - Labs CBC & Chem 7: 02/13/17 04:01 02/13/17 04:01 - ABG Interpretation ABG results: 02/11/17 02/13/17 23:43 05:04 ABG pH 7.450 ABG pCO2 42 ABG pO2 78 L ABG HCO3 29 H ABG Total CO2 30.5 H ABG O2 Saturation 96.0 ABG Base Excess 4.7 H VBG pH 7.480 H VBG pCO2 34 L VBG pO2 69 H VBG HCO3 25 VBG Total CO2 26.3 VBG O2 Saturation 95.0 VBG Base Excess 2.1 H Assessment and Plan (1) Congestive heart failure Current visit: Yes Status: Acute (2) Hypoglycemia secondary to sulfonylurea Current visit: Yes Status: Resolved (3) Anemia Current visit: Yes Status: Chronic (4) DMII (diabetes mellitus, type 2) Current visit: Yes Status: Chronic (5) Acute renal failure Current visit: Yes Status: Acute (6) CKD (chronic kidney disease) stage 3, GFR 30-59 ml/min Current visit: Yes Status: Resolved (7) Afib Current visit: Yes Status: Chronic (8) CAD (coronary artery disease) Current visit: Yes Status: Acute (9) COPD (chronic obstructive pulmonary disease) Current visit: Yes Status: Chronic (10) SWATI (obstructive sleep apnea) Current visit: Yes Status: Chronic Resuscitation Status: Do Not Resuscitate Assessment and Plan: Case discussed with Dr Blackwood (her shiatsu therapist) this am. Reviewed CRX and CT scan as well as lab. Okay to continue with low dose Amiodarone - watching for symptomatic bradycardia. Does recommend PFT with DLCO and repeat High Res CT chest in 3 months secondary to Amiodarone use. Discussed with pharm - Pradaxa 75mg BID okay to use with her renal status. HGB low, but stable - not seeing evidence for GI bleeding. Will restart Pradaxa. Restart Lasix at 20mg orally daily. Continue Spironolactone. IV Lasix stopped this am. Will stop KCl as potassium upper limit of normal. Bladder retraining due to ryan cath - hope to remove ryan tomorrow. Zofran as needed for nausea. Aspercream to help neuropathic pain to legs. Pt uses a compounded medication at home. Recheck BMP in am secondary to medication use. Check CBC in am due to anemia. Case discussed with Dr Blackwood, Pharm, and CM. Time spent with patient care 35 minutes. Sepsis Assessment - Evaluation Sepsis screening result: No Definite Risk Hospital Course Summary Disclaimer: The visit summary below is not to be considered part of the above Progress Note. Hospital Course: 02/11/17 Admission Congestive heart failure This appears acute, i'm unclear if systolic or diastolic. she is receiving 1 mg of bumex iv in the emergency room. we'll order lasix 40 mg iv every 12 hours, the next dose to be in the late evening tonight. echocardiogram should be performed when he can, probably won't be able to do this weekend. daily weights, dietary review. rule out mi with serial enzymes, tele. She has confounding issues of elevated creatinine from baseline kidney dz and Bactrim. She has lung dx (probably from 2nd hand smoke expsure) and recently untreated SWATI. Will give more lasix tomorrow am but leery of creat worsening. 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 she receives iron infusions approximately monthly, sounds like she had a couple in the past month. this is probably stable Hypoglycemia secondary to sulfonylurea I suspect this is worse because of her increased creatinine couple with probably a bit high of a dose for her. i would recommend stopping this. DMII (diabetes mellitus, type 2) Accu-cheks before meals and at bedtime with correctional insulin if needed, like to avoid dextrose infusion if we can with her fluid issues. check a1c Acute renal failure will need to monitor her creatinine closely with diuresis. her creatinine is probably elevated from the bactrim dosing.could be related with exacerbation, as well as her hypoglycemia. probably should not prescribe further oral hypoglycemic agents with elevated creatinine 71-year-old female. Afib continue amiodarone, hold pradaxa with creat cl less than 30, would consider other like eliquis with age, renal dz CAD (coronary artery disease) COPD (chronic obstructive pulmonary disease) continue her nebulizers treatments along with her inhalers, is probably somewhat contributory to her shortness of breath in addition to relatively untreated sleep apnea and the congestive heart failure. i don't think this is worth giving steroids through the iv or prednisone at this point. 02/13/17 Dr Alonzo 1) Dyspnea on exertion - severely limiting her activities. Does not appear to be caused by CHF or by lung disease (reports are pending) a) CHF - Per verbal report of 2-D echo pt LVEF is normal - Pt is on Amidarone and despite the fact she is anemic she will not get tachycardic with activiy. She will first get very dyspneic. - Suspect her SOB is multifactorial with inability to increase her HR - probably related to Amidarone - a part of this. I have STOPPED HER AMIODARONE. Please watch for tachycardia (Unlikely due to very long half life of amiodarone) - HRCT - No report - I do not see any obvious abnormalities, of course if pt has amiodarone lung disease, pulm fibrosis or other causes to explain her SOB she would need appropriate therapy. - Final reports of CT chest and Echo pending. b) COPD - Get old records, consider checking PFT's 2) CKD ? pt with chronic anemia. - Check Erythropoietin level - due to her chronic anemia. 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 4) UTI - Due to E Coli sensitive to Augmentin - Culture is final now. - Placed on Augmentin x 5 days. 5) Polypharmacy (Since admission 13 medications have been stopped) - MEDS STOPPED ON 02/13 - Today EMLA was stopped - pt stated did not know why she was on this and Amiodarone was stopped. - MEDS STOPPED ON 02/12 1) Tylenol - duplicated 2) Albuterol and Duonebs 3) Brovana - stopped. 4) Calcium - 3 different doses - cancelled 2 5) Nystatin - 2 orders cancelled 1 6) Pt is on both laxative (Senna) and Antimotility agents - Loperamide - Stopped both 7) Pt is on 2 different emolient creams - Ceramides and Urea lotion - stopped urea lotion 8) Her oral hypoglycemic medication was D/C due to hypoglycemia. 02/14/17 Sreekanth Case discussed with Dr Blackwood (her shiatsu therapist) this am. Reviewed CRX and CT scan as well as lab. Okay to continue with low dose Amiodarone - watching for symptomatic bradycardia. Does recommend PFT with DLCO and repeat High Res CT chest in 3 months secondary to Amiodarone use. Discussed with pharm - Pradaxa 75mg BID okay to use with her renal status. HGB low, but stable - not seeing evidence for GI bleeding. Will restart Pradaxa. Restart Lasix at 20mg orally daily. Continue Spironolactone. IV Lasix stopped this am. Will stop KCl as potassium upper limit of normal. Bladder retraining due to ryan cath - hope to remove ryan tomorrow. Zofran as needed for nausea. Aspercream to help neuropathic pain to legs. Pt uses a compounded medication at home. Recheck BMP in am secondary to medication use. Check CBC in am due to anemia.
[2017-02-14] MEDS: FUROSEMIDE 20 MG TABLET PO SCH (15:36)
[2017-02-14 16:36] VITALS: BMI 40.2
[2017-02-14] MEDS: BUDESONIDE INH.SOLN 0.5mg/2ml NEB AEROSOL SCH ×2 (17:03→19:18)
[2017-02-14] MEDS: ALBUTEROL/IPRATROPIUM 2.5mg-0.5mg/3ml NEB AEROSOL PRN (19:18)
[2017-02-14] MEDS: DABIGATRAN 75 MG PO SCH (21:28)
[2017-02-14] MEDS: SIMVASTATIN 20 MG TABLET PO SCH (21:28)
[2017-02-15] MEDS: LEVOTHYROXINE 125 MCG TABLET PO SCH (06:00)
[2017-02-15] MEDS: TRAMADOL 50 MG TABLET PO PRN ×3 (06:00→21:52)
[2017-02-15] MEDS: BUDESONIDE INH.SOLN 0.5mg/2ml NEB AEROSOL SCH ×3 (07:45→21:00)
[2017-02-15] MEDS: FUROSEMIDE 20 MG TABLET PO SCH (08:24)
[2017-02-15] MEDS: SPIRONOLACTONE 25 MG TABLET PO SCH (08:24)
[2017-02-15] MEDS: GABAPENTIN 300 MG CAPSULE PO SCH ×3 (08:24→21:38)
[2017-02-15] MEDS: AMOX/CLAV 500 MG/125 MG TABLET PO SCH ×2 (08:24→17:00)
[2017-02-15] MEDS: CITALOPRAM 20 MG TABLET PO SCH (08:24)
[2017-02-15] MEDS: CALCIUM 600 + VIT D 400 TABLET PO SCH (08:24)
[2017-02-15] MEDS: DABIGATRAN 75 MG PO SCH ×2 (08:24→21:38)
[2017-02-15] MEDS: ROPINIROLE 1 MG TABLET PO SCH ×2 (08:25→21:38)
[2017-02-15] MEDS: FLUTICASONE NASAL SPRAY 50mcg EA NOSTRIL SCH (08:25)
[2017-02-15] MEDS: BuPROPion XL 150mg (24HR) TABLET PO SCH (08:25)
--- NOTE | 2017-02-15 14:30 | Progress Note ---
Subjective: F/U: Acute on chronic diastolic/valvular heart failure. Doing better today. Notes less nausea-saw computer security specialist and made some adjustments in her diet. Using Mity Shake to help strength. Breathing doing well. Breathing comfortably at rest. No congestion, minimal cough. Winded after return from walk today, but much improved as compared to prior to admission. Not having chest pressure or pain. No f/c. Strength improving. Feels she is making improvements. Objective Vital signs: Temperature 97.3 F 02/15/17 07:00 Pulse Rate 53 L 02/15/17 07:00 Respiratory Rate 18 02/15/17 07:47 Blood Pressure 116/61 02/15/17 07:00 Pulse Oximetry 93 02/15/17 07:47 Oxygen Delivery Method Room Air Fraction of Inspired Oxygen 21 Height: 1.55 m Weight: 96.7 kg Body Mass Index: 40.2 - Constitutional Present: well nourished, well developed, obese, cooperative - Routine HEENT Exam Head: Present: normocephalic, atraumatic Eye: Present: EOMI, PERRL ENT: Present: mucous membranes moist (No thrush ) - Routine Respiratory Exam Present: decreased breath sounds, distant breath sounds, diminished air movement. Absent: respiratory distress, wheezes, crackles - Routine Cardiovascular Exam Present: RRR, no murmur - Routine Abdominal Exam Present: soft, normoactive bowel sounds, non distended, non tender. Absent: guarding - Routine Extremities Exam Present: no edema. Absent: cyanosis, clubbing - Routine Musculoskeletal Exam Musculoskeletal: Present: no clubbing or cyanosis, normal strength - Routine Skin Exam Present: intact, warm, normal turgor - Routine Neurological Exam Present: alert, oriented X3, CN II-XII intact, vision grossly intact, hearing grossly intact. Absent: sensory deficit, motor deficit - Routine Psychiatric Exam Present: normal affect, normal thought process, cooperative, good insight, good judgment Results - Labs CBC & Chem 7: 02/15/17 04:22 02/15/17 04:22 - ABG Interpretation ABG results: 02/11/17 02/13/17 23:43 05:04 ABG pH 7.450 ABG pCO2 42 ABG pO2 78 L ABG HCO3 29 H ABG Total CO2 30.5 H ABG O2 Saturation 96.0 ABG Base Excess 4.7 H VBG pH 7.480 H VBG pCO2 34 L VBG pO2 69 H VBG HCO3 25 VBG Total CO2 26.3 VBG O2 Saturation 95.0 VBG Base Excess 2.1 H Assessment and Plan (1) Congestive heart failure Current visit: Yes Status: Acute Acute on chronic diastolic/valvular (2) Hypoglycemia secondary to sulfonylurea Current visit: Yes Status: Resolved (3) Anemia Current visit: Yes Status: Chronic (4) DMII (diabetes mellitus, type 2) Current visit: Yes Status: Chronic (5) Acute renal failure Current visit: Yes Status: Acute (6) CKD (chronic kidney disease) stage 3, GFR 30-59 ml/min Current visit: Yes Status: Resolved (7) Afib Current visit: Yes Status: Chronic (8) CAD (coronary artery disease) Current visit: Yes Status: Acute (9) COPD (chronic obstructive pulmonary disease) Current visit: Yes Status: Chronic (10) SWATI (obstructive sleep apnea) Current visit: Yes Status: Chronic (11) Hyperkalemia Problem details: Not POA Current visit: Yes Status: Acute DVT Prophylaxis: Pradaxa Resuscitation Status: Do Not Resuscitate Assessment and Plan: With increase of potassium will stop Spironolactone and give oral Kayexylate. Blood sugars stable off of medications. Hemoglobin stable to improved - occult stool negative. No transfusion given this hospitalization. Likely decrease hemoglobin dilutional secondary to volume excess at presentation. Do have page out to Dr Gonzalez to review patients blood counts. Iron low normal at 44, with TIBC decreased at 236 and Ferritin elevated at 647. Vitamin B12 normal at 487 and folate normal at 6.8 Reviewed patients home Neurontin dosing - is taking 300mg TID with 400mg BID ( 700mg am, 300 afternoon, and 700mg at night) Will return to home dosing to help her leg pain. D/C Ryan cath. Urine with subclinical growth of Ecoli - can stop Augmenting after tomorrows am dose. Continue activities and therapy. Recheck BMP in am due to hyperkalemia and medication use. Will check hemogram in ad secondary to anemia. Case discussed with CM. Time spent with patient care 35 minutes. - Time spent with patient 25 - 35 minutes Sepsis Assessment - Evaluation Sepsis screening result: No Definite Risk Hospital Course Summary Disclaimer: The visit summary below is not to be considered part of the above Progress Note. Hospital Course: 02/11/17 Admission Congestive heart failure This appears acute, i'm unclear if systolic or diastolic. She is receiving 1 mg of bumex iv in the emergency room. We'll order lasix 40 mg iv every 12 hours, the next dose to be in the late evening tonight. Echocardiogram should be performed when he can, probably won't be able to do this weekend. Daily weights, dietary review. Rule out mi with serial enzymes, tele. She has confounding issues of elevated creatinine from baseline kidney dz and Bactrim. She has lung dx (probably from 2nd hand smoke expsure) and recently untreated SWATI. Will give more lasix tomorrow am but leery of creat worsening. 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 She receives iron infusions approximately monthly, sounds like she had a couple in the past month. This is probably stable Hypoglycemia secondary to sulfonylurea I suspect this is worse because of her increased creatinine couple with probably a bit high of a dose for her. I would recommend stopping this. DMII (diabetes mellitus, type 2) Accu-cheks before meals and at bedtime with correctional insulin if needed, like to avoid dextrose infusion if we can with her fluid issues. Check a1c Acute renal failure Will need to monitor her creatinine closely with diuresis. Her creatinine is probably elevated from the bactrim dosing.could be related with exacerbation, as well as her hypoglycemia. Probably should not prescribe further oral hypoglycemic agents with elevated creatinine 71-year-old female. Afib Continue amiodarone, hold pradaxa with creat cl less than 30, would consider other like eliquis with age, renal dz CAD (coronary artery disease) COPD (chronic obstructive pulmonary disease) Continue her nebulizers treatments along with her inhalers, is probably somewhat contributory to her shortness of breath in addition to relatively untreated sleep apnea and the congestive heart failure. I don't think this is worth giving steroids through the iv or prednisone at this point. 02/13/17 Dr Alonzo 1) Dyspnea on exertion - severely limiting her activities. Does not appear to be caused by CHF or by lung disease (reports are pending) a) CHF - Per verbal report of 2-D echo pt LVEF is normal - Pt is on Amidarone and despite the fact she is anemic she will not get tachycardic with activiy. She will first get very dyspneic. - Suspect her SOB is multifactorial with inability to increase her HR - probably related to Amidarone - a part of this. I have STOPPED HER AMIODARONE. Please watch for tachycardia (Unlikely due to very long half life of amiodarone) - HRCT - No report - I do not see any obvious abnormalities, of course if pt has amiodarone lung disease, pulm fibrosis or other causes to explain her SOB she would need appropriate therapy. - Final reports of CT chest and Echo pending. b) COPD - Get old records, consider checking PFT's 2) CKD ? pt with chronic anemia. - Check Erythropoietin level - due to her chronic anemia. 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 4) UTI - Due to E Coli sensitive to Augmentin - Culture is final now. - Placed on Augmentin x 5 days. 5) Polypharmacy (Since admission 13 medications have been stopped) - MEDS STOPPED ON 02/13 - Today EMLA was stopped - pt stated did not know why she was on this and Amiodarone was stopped. - MEDS STOPPED ON 02/12 1) Tylenol - duplicated 2) Albuterol and Duonebs 3) Brovana - stopped. 4) Calcium - 3 different doses - cancelled 2 5) Nystatin - 2 orders cancelled 1 6) Pt is on both laxative (Senna) and Antimotility agents - Loperamide - Stopped both 7) Pt is on 2 different emolient creams - Ceramides and Urea lotion - stopped urea lotion 8) Her oral hypoglycemic medication was D/C due to hypoglycemia. 02/14/17 Sreekanth Case discussed with Dr Blackwood (her milling supervisor) this am. Reviewed CRX and CT scan as well as lab. Okay to continue with low dose Amiodarone - watching for symptomatic bradycardia. Does recommend PFT with DLCO and repeat High Res CT chest in 3 months secondary to Amiodarone use. Discussed with pharm - Pradaxa 75mg BID okay to use with her renal status. HGB low, but stable - not seeing evidence for GI bleeding. Will restart Pradaxa. Restart Lasix at 20mg orally daily. Continue Spironolactone. IV Lasix stopped this am. Will stop KCl as potassium upper limit of normal. Bladder retraining due to ryan cath - hope to remove ryan tomorrow. Zofran as needed for nausea. Aspercream to help neuropathic pain to legs. Pt uses a compounded medication at home. Recheck BMP in am secondary to medication use. Check CBC in am due to anemia. 02/15/17 With increase of potassium will stop Spironolactone and give oral Kayexylate. Blood sugars stable off of medications. Hemoglobin stable to improved - occult stool negative. No transfusion given this hospitalization. Likely decrease hemoglobin dilutional secondary to volume excess at presentation. Do have page out to Dr Gonzalez to review patients blood counts. Iron low normal at 44, with TIBC decreased at 236 and Ferritin elevated at 647. Vitamin B12 normal at 487 and folate normal at 6.8 Reviewed patients home Neurontin dosing - is taking 300mg TID with 400mg BID ( 700mg am, 300 afternoon, and 700mg at night) Will return to home dosing to help her leg pain. D/C Ryan cath. Urine with subclinical growth of Ecoli - can stop Augmenting after tomorrows am dose. Continue activities and therapy. Recheck BMP in am due to hyperkalemia and medication use. Will check hemogram in ad secondary to anemia.
[2017-02-15] MEDS: INSULIN ASPART 100unit/ml INJECTION SQ PRN ×2 (15:41→21:58)
[2017-02-15] MEDS ORDERED: SODIUM POLYSTYRENE SULFONATE 15 GM/60 ML BOTTLE PO ONE (18:40)
[2017-02-15] MEDS: SIMVASTATIN 20 MG TABLET PO SCH (21:38)
[2017-02-15] MEDS: SALINE FLUSH 10ml SYRINGE IVF PRN (21:39)
[2017-02-15] MEDS: GABAPENTIN 400 MG CAPSULE PO SCH (21:45)
[2017-02-15] MEDS: CERAMIDES PO SCH (21:49)
[2017-02-16] MEDS: LEVOTHYROXINE 125 MCG TABLET PO SCH (05:51)
[2017-02-16] MEDS: INSULIN ASPART 100unit/ml INJECTION SQ PRN ×4 (05:51→22:53)
[2017-02-16] MEDS: CITALOPRAM 20 MG TABLET PO SCH (08:32)
[2017-02-16] MEDS: CALCIUM 600 + VIT D 400 TABLET PO SCH (08:32)
[2017-02-16] MEDS: GABAPENTIN 400 MG CAPSULE PO SCH ×2 (08:32→20:32)
[2017-02-16] MEDS: AMOX/CLAV 500 MG/125 MG TABLET PO SCH (08:32)
[2017-02-16] MEDS: DABIGATRAN 75 MG PO SCH ×2 (08:32→20:32)
[2017-02-16] MEDS: ROPINIROLE 1 MG TABLET PO SCH ×2 (08:33→20:32)
[2017-02-16] MEDS: FUROSEMIDE 20 MG TABLET PO SCH (08:33)
[2017-02-16] MEDS: GABAPENTIN 300 MG CAPSULE PO SCH ×3 (08:33→20:32)
[2017-02-16] MEDS: BuPROPion XL 150mg (24HR) TABLET PO SCH (08:33)
[2017-02-16] MEDS: FLUTICASONE NASAL SPRAY 50mcg EA NOSTRIL SCH (08:35)
[2017-02-16] MEDS: ALBUTEROL/IPRATROPIUM 2.5mg-0.5mg/3ml NEB AEROSOL PRN ×2 (09:39→19:42)
[2017-02-16] MEDS: BUDESONIDE INH.SOLN 0.5mg/2ml NEB AEROSOL SCH ×2 (09:39→19:42)
[2017-02-16] MEDS ORDERED: SODIUM POLYSTYRENE SULFONATE 15 GM/60 ML BOTTLE PO ONE (11:18)
[2017-02-16] MEDS: TRAMADOL 50 MG TABLET PO PRN ×2 (12:03→20:36)
--- NOTE | 2017-02-16 15:58 | Progress Note ---
Subjective: F/U: Acute on chronic diastolic/valvular heart failure. Doing okay overall. Breathing doing well. No chest pain or pressure. Notes less nausea, not having ab pain. Stools slow. No f/c. Strength improving. Objective Vital signs: Temperature 98.4 F 02/16/17 00:13 Pulse Rate 61 02/16/17 09:00 Respiratory Rate 24 02/16/17 09:30 Blood Pressure 118/67 02/16/17 09:00 Pulse Oximetry 98 02/16/17 09:30 Oxygen Delivery Method Room Air Fraction of Inspired Oxygen 21 Weight: 91 kg - Constitutional Present: no acute distress, well nourished, well developed, obese, cooperative - Routine HEENT Exam Head: Present: normocephalic, atraumatic Eye: Present: EOMI, PERRL ENT: Present: mucous membranes moist - Routine Respiratory Exam Present: decreased breath sounds. Absent: respiratory distress, rhonchi, stridor, wheezes, crackles - Routine Cardiovascular Exam Present: RRR - Routine Abdominal Exam Present: soft, non distended, non tender. Absent: normoactive bowel sounds ( Decreased) - Routine Extremities Exam Present: no edema, pulses intact. Absent: cyanosis, clubbing - Routine Musculoskeletal Exam Musculoskeletal: Present: no clubbing or cyanosis, normal strength - Routine Skin Exam Present: intact, warm, normal turgor - Routine Neurological Exam Present: alert, oriented X3, CN II-XII intact, vision grossly intact, hearing grossly intact. Absent: motor deficit - Routine Psychiatric Exam Present: normal affect, normal thought process, cooperative, good insight, good judgment Results - Labs CBC & Chem 7: 02/16/17 04:24 02/16/17 04:24 - ABG Interpretation ABG results: 02/11/17 02/13/17 23:43 05:04 ABG pH 7.450 ABG pCO2 42 ABG pO2 78 L ABG HCO3 29 H ABG Total CO2 30.5 H ABG O2 Saturation 96.0 ABG Base Excess 4.7 H VBG pH 7.480 H VBG pCO2 34 L VBG pO2 69 H VBG HCO3 25 VBG Total CO2 26.3 VBG O2 Saturation 95.0 VBG Base Excess 2.1 H Assessment and Plan (1) Congestive heart failure Current visit: Yes Status: Acute Acute on chronic diastolic/valvular (2) Hypoglycemia secondary to sulfonylurea Current visit: Yes Status: Resolved 02/12/17 00:16 i suspect this is worse because of her increased creatinine couple with probably a bit high of a dose for her. 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 she receives iron infusions approximately monthly, sounds like she had a couple in the past month. this is probably stable 02/12/17 00:13 (4) DMII (diabetes mellitus, type 2) Current visit: Yes Status: Chronic 02/11/17 19:20 accu-cheks before meals and at bedtime with correctional insulin if needed, like to avoid dextrose infusion if we can with her fluid issues. check a1c we haven't in a while (5) Acute renal failure Current visit: Yes Status: Acute 02/11/17 19:31 will need to monitor her creatinine closely with diuresis. her creatinine is probably elevated from the bactrim dosing.could be related with exacerbation, as well as her hypoglycemia. probably should not prescribe further oral hypoglycemic agents with elevated creatinine 71-year-old female. 02/12/17 00:17 (6) CKD (chronic kidney disease) stage 3, GFR 30-59 ml/min Current visit: Yes Status: Resolved (7) Afib Current visit: Yes Status: Chronic 02/12/17 00:17 continue amiodarone, hold pradaxa with creat cl less than 30, would consider other like eliquis with age, renal dz (8) CAD (coronary artery disease) Current visit: Yes Status: Acute (9) COPD (chronic obstructive pulmonary disease) Current visit: Yes Status: Chronic 02/12/17 00:18 continue her nebulizers treatments along with her inhalers, is probably somewhat contributory to her shortness of breath in addition to relatively untreated sleep apnea and the congestive heart failure. i don't think this is worth giving steroids through the iv or prednisone at this point. (10) SWATI (obstructive sleep apnea) Current visit: Yes Status: Chronic (11) Hyperkalemia Problem details: Not POA Current visit: Yes Status: Acute DVT Prophylaxis: Pradaxa Resuscitation Status: Do Not Resuscitate Assessment and Plan: Potassium still with elevation. Repeat Kayexalate today to help decrease potassium. With increase of creatinine will give 500 cc of 1/2NS to help improve creatinine and waste potassium. With continued elevation of potassium and increase of creatinine, do not feel pt is ready for discharge at this time. Can discontinue Augmentin Continue activities and therapy. Patient continues to work with therapy. Recheck BMP in am due to hyperkalemia and medication use. Will check hemogram in ad secondary to anemia. Case discussed with CM. Time spent with patient care 35 minutes. Sepsis Assessment - Evaluation Sepsis screening result: No Definite Risk Hospital Course Summary Disclaimer: The visit summary below is not to be considered part of the above Progress Note. Hospital Course: 02/11/17 Admission Congestive heart failure This appears acute, i'm unclear if systolic or diastolic. She is receiving 1 mg of bumex iv in the emergency room. We'll order lasix 40 mg iv every 12 hours, the next dose to be in the late evening tonight. Echocardiogram should be performed when he can, probably won't be able to do this weekend. Daily weights, dietary review. Rule out mi with serial enzymes, tele. She has confounding issues of elevated creatinine from baseline kidney dz and Bactrim. She has lung dx (probably from 2nd hand smoke expsure) and recently untreated SWATI. Will give more lasix tomorrow am but leery of creat worsening. 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 She receives iron infusions approximately monthly, sounds like she had a couple in the past month. This is probably stable Hypoglycemia secondary to sulfonylurea I suspect this is worse because of her increased creatinine couple with probably a bit high of a dose for her. I would recommend stopping this. DMII (diabetes mellitus, type 2) Accu-cheks before meals and at bedtime with correctional insulin if needed, like to avoid dextrose infusion if we can with her fluid issues. Check a1c Acute renal failure Will need to monitor her creatinine closely with diuresis. Her creatinine is probably elevated from the bactrim dosing.could be related with exacerbation, as well as her hypoglycemia. Probably should not prescribe further oral hypoglycemic agents with elevated creatinine 71-year-old female. Afib Continue amiodarone, hold pradaxa with creat cl less than 30, would consider other like eliquis with age, renal dz CAD (coronary artery disease) COPD (chronic obstructive pulmonary disease) Continue her nebulizers treatments along with her inhalers, is probably somewhat contributory to her shortness of breath in addition to relatively untreated sleep apnea and the congestive heart failure. I don't think this is worth giving steroids through the iv or prednisone at this point. 02/13/17 Dr Alonzo 1) Dyspnea on exertion - severely limiting her activities. Does not appear to be caused by CHF or by lung disease (reports are pending) a) CHF - Per verbal report of 2-D echo pt LVEF is normal - Pt is on Amidarone and despite the fact she is anemic she will not get tachycardic with activiy. She will first get very dyspneic. - Suspect her SOB is multifactorial with inability to increase her HR - probably related to Amidarone - a part of this. I have STOPPED HER AMIODARONE. Please watch for tachycardia (Unlikely due to very long half life of amiodarone) - HRCT - No report - I do not see any obvious abnormalities, of course if pt has amiodarone lung disease, pulm fibrosis or other causes to explain her SOB she would need appropriate therapy. - Final reports of CT chest and Echo pending. b) COPD - Get old records, consider checking PFT's 2) CKD ? pt with chronic anemia. - Check Erythropoietin level - due to her chronic anemia. 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 4) UTI - Due to E Coli sensitive to Augmentin - Culture is final now. - Placed on Augmentin x 5 days. 5) Polypharmacy (Since admission 13 medications have been stopped) - MEDS STOPPED ON 02/13 - Today EMLA was stopped - pt stated did not know why she was on this and Amiodarone was stopped. - MEDS STOPPED ON 02/12 1) Tylenol - duplicated 2) Albuterol and Duonebs 3) Brovana - stopped. 4) Calcium - 3 different doses - cancelled 2 5) Nystatin - 2 orders cancelled 1 6) Pt is on both laxative (Senna) and Antimotility agents - Loperamide - Stopped both 7) Pt is on 2 different emolient creams - Ceramides and Urea lotion - stopped urea lotion 8) Her oral hypoglycemic medication was D/C due to hypoglycemia. 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 Reviewed CRX and CT scan as well as lab. Okay to continue with low dose Amiodarone - watching for symptomatic bradycardia. Does recommend PFT with DLCO and repeat High Res CT chest in 3 months secondary to Amiodarone use. Discussed with pharm - Pradaxa 75mg BID okay to use with her renal status. HGB low, but stable - not seeing evidence for GI bleeding. Will restart Pradaxa. Restart Lasix at 20mg orally daily. Continue Spironolactone. IV Lasix stopped this am. Will stop KCl as potassium upper limit of normal. Bladder retraining due to Sow cath - hope to remove Sow tomorrow. Zofran as needed for nausea. Aspercreme to help neuropathic pain to legs. Pt uses a compounded medication at home. Recheck BMP in am secondary to medication use. Check CBC in am due to anemia. 02/15/17 With increase of potassium will stop Spironolactone and give oral Kayexylate. Blood sugars stable off of medications. Hemoglobin stable to improved - occult stool negative. No transfusion given this hospitalization. Likely decrease hemoglobin dilutional secondary to volume excess at presentation. Discussed with Dr Gonzalez about patients blood counts. Iron low normal at 44, with TIBC decreased at 236 and Ferritin elevated at 647. Vitamin B12 normal at 487 and folate normal at 6.8 He does not see need for IV Iron infusion at this time. Reviewed patients home Neurontin dosing - is taking 300mg TID with 400mg BID ( 700mg am, 300 afternoon, and 700mg at night) Will return to home dosing to help her leg pain. D/C Sow cath. Urine with subclinical growth of Ecoli - can stop Augmenting after tomorrows am dose. Continue activities and therapy. Recheck BMP in am due to hyperkalemia and medication use. Will check hemogram in ad secondary to anemia. 02/16/17 Potassium still with elevation: 5.6 this am. Creatinine 2.0. Repeat Kayexalate today to help decrease potassium. With increase of creatinine will give 500 cc of 1/2NS to help improve creatinine and waste potassium. With continued elevation of potassium and increase of creatinine, do not feel pt is ready for discharge at this time. Can discontinue Augmentin May restart Amiodarone. Continue activities and therapy. Patient continues to work with therapy. Recheck BMP in am due to hyperkalemia and medication use. Will check hemogram in ad secondary to anemia.
[2017-02-16] MEDS: 1/2 NS 500 ML IV SCH ×2 (16:22→22:19)
[2017-02-16] MEDS: SIMVASTATIN 20 MG TABLET PO SCH ×2 (20:32→21:10)
[2017-02-17] MEDS: 1/2 NS 500 ML IV SCH ×2 (02:34→10:39)
[2017-02-17] MEDS: LEVOTHYROXINE 125 MCG TABLET PO SCH (05:52)
[2017-02-17] MEDS: INSULIN ASPART 100unit/ml INJECTION SQ PRN ×4 (06:41→23:04)
[2017-02-17] MEDS: DABIGATRAN 75 MG PO SCH ×2 (08:07→21:46)
[2017-02-17] MEDS: CALCIUM 600 + VIT D 400 TABLET PO SCH (08:07)
[2017-02-17] MEDS: BuPROPion XL 150mg (24HR) TABLET PO SCH (08:08)
[2017-02-17] MEDS: GABAPENTIN 400 MG CAPSULE PO SCH ×2 (08:08→21:46)
[2017-02-17] MEDS: FUROSEMIDE 20 MG TABLET PO SCH (08:08)
[2017-02-17] MEDS: AMIODARONE 200 MG TABLET PO SCH (08:09)
[2017-02-17] MEDS: CITALOPRAM 20 MG TABLET PO SCH (08:13)
[2017-02-17] MEDS: ROPINIROLE 1 MG TABLET PO SCH ×2 (08:14→21:46)
[2017-02-17] MEDS: FLUTICASONE NASAL SPRAY 50mcg EA NOSTRIL SCH (08:15)
[2017-02-17] MEDS: GABAPENTIN 300 MG CAPSULE PO SCH ×3 (08:17→21:46)
[2017-02-17] MEDS: ARFORMOTEROL NEB 15mcg/2ml AEROSOL SCH ×2 (10:10→21:15)
[2017-02-17] MEDS: BUDESONIDE INH.SOLN 0.5mg/2ml NEB AEROSOL SCH ×2 (10:11→21:15)
[2017-02-17] MEDS: TRAMADOL 50 MG TABLET PO PRN ×2 (12:25→21:46)
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
[2017-02-17] MEDS: SIMVASTATIN 20 MG TABLET PO SCH (21:46)
[2017-02-18] MEDS ORDERED: ALENDRONATE 70 MG TABLET PO SCH (06:00)
[2017-02-18] MEDS: LEVOTHYROXINE 125 MCG TABLET PO SCH (06:53)
[2017-02-18] MEDS: INSULIN ASPART 100unit/ml INJECTION SQ PRN ×2 (06:59→14:51)
[2017-02-18] MEDS ORDERED: GlipiZIDE 5 MG TABLET PO SCH (07:30)
[2017-02-18 07:47] VITALS: TEMP 97.5
[2017-02-18] MEDS: BuPROPion XL 150mg (24HR) TABLET PO SCH (09:14)
[2017-02-18] MEDS: ROPINIROLE 1 MG TABLET PO SCH (09:15)
[2017-02-18] MEDS: CALCIUM 600 + VIT D 400 TABLET PO SCH (09:15)
[2017-02-18] MEDS: DABIGATRAN 75 MG PO SCH (09:15)
[2017-02-18] MEDS: AMIODARONE 200 MG TABLET PO SCH (09:15)
[2017-02-18] MEDS: FUROSEMIDE 20 MG TABLET PO SCH (09:15)
[2017-02-18] MEDS: GABAPENTIN 400 MG CAPSULE PO SCH (09:15)
[2017-02-18] MEDS: GABAPENTIN 300 MG CAPSULE PO SCH ×2 (09:15→14:51)
[2017-02-18] MEDS: CITALOPRAM 20 MG TABLET PO SCH (09:16)
[2017-02-18] MEDS: FLUTICASONE NASAL SPRAY 50mcg EA NOSTRIL SCH (09:18)
[2017-02-18 11:14] VITALS: PULSE 69
[2017-02-18 11:15] VITALS: BP 83/45
--- NOTE | 2017-02-18 11:22 | XRay Report ---
Indication: dyspnea Procedure: XR chest 1V: Encounter: Subsequent Comparison: Prior chest radiographs 02/09/2017, subsequent chest radiographs and high-resolution chest CT 02/12/2017 and 02/13/2017 respectively Technique: A single portable AP view of the chest was obtained. Findings: Evaluation limited by suboptimal penetration and patient positioning. Lungs and airways: Normal lung volumes. No focal airspace consolidation. Normal pulmonary vasculature. Pleura: Possible small left pleural effusion. No pneumothorax. Heart and mediastinum: The cardiomediastinal silhouette and great vessels appear unchanged with redemonstration of cardiomegaly. Osseous structures and soft tissues: No acute osseous abnormality is seen. Impression: Cardiomegaly with possible small left pleural effusion. .
[2017-02-18] MEDS: ARFORMOTEROL NEB 15mcg/2ml AEROSOL SCH (11:25)
[2017-02-18] MEDS: BUDESONIDE INH.SOLN 0.5mg/2ml NEB AEROSOL SCH (11:25)
--- NOTE | 2017-02-18 11:28 | Discharge Instructions ---
Discharge Plan - Med Rec/Dispo Referrals/Follow Up: Vi Blackwood MD [Physician] - (If continued to have episodes of lightheadedness while lying down should see Dr. Blackwood soon) Kimmy Lorenz MD [Physician] - (As scheduled, may need to see Dr. Lorenz sooner if continue to have difficulty with leg symptoms) Lora Roberts DO [Family Provider] - 1 Week Trlizzy Instructions: Heart Failure (GEN) Prescriptions: New GlipiZIDE [Glucotrol] 5 mg PO ACB30 tablet Tramadol [Ultram] 50 mg PO Q6HR PRN #30 tablet PRN Reason: P Albuterol/Ipratropium [Duoneb] 3 ml AEROSOL Q4H PRN neb PRN Reason: Shortness Of Air/Wheezing Glucose Oral Gel 40% [Glutose 15] 37.5 gm PO PRN PRN tube PRN Reason: Hypoglycemia Trolamine Salicylate 10% Cream [Aspercreme] 1 applic TOP QID tube Continue Triamcinolone 0.25% Cream 15G [Kenalog] 1 applic TOP DAILY PRN #0 PRN Reason: DRY SKIN Dabigatran Etexilate Mesylate [Pradaxa] 75 mg PO BID #0 Amiodarone HCl 100 mg PO DAILY #0 Cyanocobalamin (B-12) [Vit. B-12] 1,000 mcg IM MONTHLY #0 Gabapentin 300 mg PO TID #0 Melatonin/Pyridoxine HCl (B6) [Melatonin 1 mg Tablet] 1 mg PO HS PRN #0 PRN Reason: INSOMNIA Gabapentin 400 mg PO BID #0 Nystatin Powder [Mycostatin] 1 applic TP BID PRN PRN Reason: Rash Acetaminophen 650 mg PO Q4H PRN PRN Reason: Fever CALCIUM CARBONATE Chewable [Tums Extra Strength] 750 mg PO QID PRN PRN Reason: Prn Orders Lidocaine/Prilocaine [EMLA 5gm] 1 applic TOP QID Fluticasone Nasal [place] [Flonase] 1 spray EA NOSTRIL DAILY Ropinirole HCl 1 mg PO BID Calcium Carbonate/Vitamin D3 [Caltrate 600 Plus D3 Tablet] 1 tab PO DAILY Arformoterol Neb [Brovana Neb] 15 mcg AEROSOL BID #0 Levothyroxine Sodium 125 mcg PO DAILY #0 Simvastatin 20 mg PO HS #0 Alendronate Sodium [Fosamax] 70 mg PO QFRIDAY #0 buPROPion HCl [Wellbutrin Xl] 150 mg PO DAILY #0 Ceramides 1,3,6-11 [Cerave] 1 applic TOP TUFR #0 Urea/Allantoin/Vit E Acetate [Flexitol Heel [place] Cream] 1 applic TOP HS #0 diphenhydrAMINE HCl [Diphenhydramine HCl] 25 mg PO Q6H PRN #0 PRN Reason: ITCHING Trazodone [Desyrel] 25 mg PO BID PRN PRN Reason: Anxiety guaiFENesin [Mucinex] 1,200 mg PO Q12H PRN PRN Reason: Congestion Citalopram [Celexa] 30 mg PO DAILY Furosemide [Lasix] 20 mg PO DAILY Budesonide 0.5 mg AEROSOL Q12H Discontinued Sulfamethox/Tmp [Bactrim Ds] 1 tab PO Q12H Pantoprazole Tab [Protonix Tab] 40 mg PO DAILY Nystatin Powder [Mycostatin] 1 applic TP TID Spironolactone [Aldactone] 25 mg PO DAILY #0 Albuterol Sulfate 2.5 mg AEROSOL Q4H PRN #0 PRN Reason: WHEEZING Tramadol HCl 50 mg PO Q6HR PRN #0 PRN Reason: PAIN glipiZIDE [Glipizide] 5 mg PO BID #0 Ondansetron [Zofran Odt] 8 mg PO Q8H PRN #0 PRN Reason: NAUSEA &/OR VOMITING Loperamide HCl [Loperamide] 2 mg PO Q6H PRN #0 PRN Reason: DIARRHEA Lysine 1,000 mg PO QID PRN #0 PRN Reason: Prn Orders Discharge Instructions/Outpatient Orders: Final Provider Discharge Instructions Location: Determined By Patient - Disposition [facility] ([facility])
[2017-02-18 11:31] VITALS: RESP 20; O2SAT 92
--- NOTE | 2017-02-18 13:25 | Discharge Instructions ---
Discharge Plan - Med Rec/Dispo Referrals/Follow Up: Vi Blackwood MD [Physician] - (If continued to have episodes of lightheadedness while lying down should see Dr. Blackwood soon) Kimmy Lorenz MD [Physician] - (As scheduled, may need to see Dr. Lorenz sooner if continue to have difficulty with leg symptoms) Lora Roberts DO [Family Provider] - 1 Week Trlizzy Instructions: Heart Failure (GEN) Prescriptions: New GlipiZIDE [Glucotrol] 5 mg PO ACB30 tablet Tramadol [Ultram] 50 mg PO Q6HR PRN #30 tablet PRN Reason: P Furosemide [Lasix] 1 tab PO 3XW #30 tab Albuterol/Ipratropium [Duoneb] 3 ml AEROSOL Q4H PRN neb PRN Reason: Shortness Of Air/Wheezing Glucose Oral Gel 40% [Glutose 15] 37.5 gm PO PRN PRN tube PRN Reason: Hypoglycemia Trolamine Salicylate 10% Cream [Aspercreme] 1 applic TOP QID tube Continue Triamcinolone 0.25% Cream 15G [Kenalog] 1 applic TOP DAILY PRN #0 PRN Reason: DRY SKIN Dabigatran Etexilate Mesylate [Pradaxa] 75 mg PO BID #0 Amiodarone HCl 100 mg PO DAILY #0 Cyanocobalamin (B-12) [Vit. B-12] 1,000 mcg IM MONTHLY #0 Gabapentin 300 mg PO TID #0 Melatonin/Pyridoxine HCl (B6) [Melatonin 1 mg Tablet] 1 mg PO HS PRN #0 PRN Reason: INSOMNIA Gabapentin 400 mg PO BID #0 Nystatin Powder [Mycostatin] 1 applic TP BID PRN PRN Reason: Rash Acetaminophen 650 mg PO Q4H PRN PRN Reason: Fever CALCIUM CARBONATE Chewable [Tums Extra Strength] 750 mg PO QID PRN PRN Reason: Prn Orders Lidocaine/Prilocaine [EMLA 5gm] 1 applic TOP QID Fluticasone Nasal [place] [Flonase] 1 spray EA NOSTRIL DAILY Ropinirole HCl 1 mg PO BID Calcium Carbonate/Vitamin D3 [Caltrate 600 Plus D3 Tablet] 1 tab PO DAILY Arformoterol Neb [Brovana Neb] 15 mcg AEROSOL BID #0 Levothyroxine Sodium 125 mcg PO DAILY #0 Simvastatin 20 mg PO HS #0 Alendronate Sodium [Fosamax] 70 mg PO QFRIDAY #0 buPROPion HCl [Wellbutrin Xl] 150 mg PO DAILY #0 Ceramides 1,3,6-11 [Cerave] 1 applic TOP TUFR #0 Urea/Allantoin/Vit E Acetate [Flexitol Heel [place] Cream] 1 applic TOP HS #0 diphenhydrAMINE HCl [Diphenhydramine HCl] 25 mg PO Q6H PRN #0 PRN Reason: ITCHING Trazodone [Desyrel] 25 mg PO BID PRN PRN Reason: Anxiety guaiFENesin [Mucinex] 1,200 mg PO Q12H PRN PRN Reason: Congestion Citalopram [Celexa] 30 mg PO DAILY Budesonide 0.5 mg AEROSOL Q12H Discontinued Sulfamethox/Tmp [Bactrim Ds] 1 tab PO Q12H Pantoprazole Tab [Protonix Tab] 40 mg PO DAILY Nystatin Powder [Mycostatin] 1 applic TP TID Spironolactone [Aldactone] 25 mg PO DAILY #0 Albuterol Sulfate 2.5 mg AEROSOL Q4H PRN #0 PRN Reason: WHEEZING Tramadol HCl 50 mg PO Q6HR PRN #0 PRN Reason: PAIN glipiZIDE [Glipizide] 5 mg PO BID #0 Ondansetron [Zofran Odt] 8 mg PO Q8H PRN #0 PRN Reason: NAUSEA &/OR VOMITING Loperamide HCl [Loperamide] 2 mg PO Q6H PRN #0 PRN Reason: DIARRHEA Lysine 1,000 mg PO QID PRN #0 PRN Reason: Prn Orders Furosemide [Lasix] 20 mg PO DAILY Discharge Instructions/Outpatient Orders: Final Provider Discharge Instructions Location: Determined By Patient - [facility]position [facility] ([facility])
--- NOTE | 2017-02-18 13:33 | Extended Care Facility Orders ---
Admission Orders Admit to:: Correction Allergies/Adverse Reactions: Allergies diltiazem Allergy (Unknown, Verified 02/11/17 17:12) flecainide Allergy (Unknown, Verified 02/11/17 17:12) PATIENT DENIES nitrofurantoin Allergy (Unknown, Verified 02/11/17 17:12) ITCHING oxycodone Adverse Reaction (Intermediate, Verified 02/11/17 17:13) Hallucinating Admitting Diagnosis: CHF Admitting Physician: Latanya Dietrich MD Attending Physician: Latanya Dietrich MD Code Status: Do Not Resuscitate Anticiapted Length of Stay: 30 days or less Rehab Potential: good Rehab Prognosis: good Diet: Cardiac Consistent Carbohydrate Diet [DIET] Calorie Level: 1600 Sodium Restriction: 2GRAM Fat Content: LOW May use Facility Protocol or Standing Orders: Yes May have flu vaccine: Yes Evaluations/Treatment: PT, OT Correction Certification: I certify that SNF services are required to be given on an Inpatient basis because of the patients need for [facility] care on a continuing basis for the condition(s) for which he/she received inpatient hospital services prior to his/her transfer to the SNF. SNF inpatient care is necessary for the following reasons Indication for Correction: Diabetic Assessment, Diabetic Education, Teach Medication Management, Teach CHF, Teach Diabetes Mellitus Management, Teach COPD Management - Additional Information In Event of Arrest: Do Not Start CPR Resident is Aware of Diagnosis: Yes Referrals: Vi Blackwood MD [Physician] - (If continued to have episodes of lightheadedness while lying down should see Dr. Blackwood soon) Kimmy Lorenz MD [Physician] - (As scheduled, may need to see Dr. Lorenz sooner if continue to have difficulty with leg symptoms) Lora Roberts DO [Family Provider] - 1 Week Additional Orders: Daily weights-notify physician if weight is up more than 3 pounds in 24 hours or 5 pounds in a week. Discharge weight at the hospital 93.1 kg on 02/18/17. Lasix to be given 3 days a week-on Tuesday, Tuesday, and Tuesday. Monitor blood sugars fasting and 2 hours after meals; glipizide dose decreased to once daily due to recurring episodes of hypoglycemia. Follow-up appointment with Dr. Roberts in approximately one week. BMP, magnesium on 02/23- diagnosis I50.33-results to Dr. Roberts. Treatment for UTI completed during hospital course.
--- NOTE | 2017-02-18 23:46 | Discharge Summary ---
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 Normal LV systolic function with ejection fraction of about 55%. 2. Mitral annulus calcification with mild mitral regurgitation. 3. Aortic sclerosis. 4. Left ventricular hypertrophy. 5. Left atrial dilation. 6. Mild tricuspid regurgitation. - Laboratory Labs: On admission (02/11/17) hemoglobin was 8.3 with MCV 102.6, white count 7.1, and platelet count 161; arterial blood gas 7.48/34/69/25 on room air Admission chemistries with creatinine 1.8, BUN 22, BNP 2220, and undetectable troponin. Additional studies obtained during the hospital course included A1c of 5.3, TSH 2.19 with free T4 2 0.1 total cholesterol 102, triglycerides 69, LDL 53, HDL 35 Serum iron 44, TIBC 236, iron saturation 19%, ferritin 647, vitamin B-12 487, folic acid 6.8 Hemoccult 1 negative Discharge labs: 02/17/17 04:35 02/18/17 04:37 - Microbiology Urine culture +50,000-100,000 colonies Escherichia coli sensitive to all tested antibiotics except ampicillin and sulfa - Radiology Radiology: Chest x-ray on admission demonstrated cardiomegaly with small left pleural effusion. Repeat chest x-ray on 02/12 demonstrated persistent cardiac prominence with increased pulmonary markings. High-resolution chest CT on 02/13 demonstrated: Patient demonstrates normal heart size. Lungs failed to show significant acute abnormality. Very minimal increased basilar markings are seen which could represent either minimal atelectasis or scarring. No typical pattern of interstitial pulmonary fibrosis is identified. No pleural reaction or bronchiectasis noted. No masses or significant consolidations are seen. No pathologic adenopathy is seen. Patient shows postoperative changes involving the upper abdomen. Reformatted imaging showed rotoscoliosis and degenerative changes in the thoracolumbar spine with bridging osteophytes and multilevel degenerative disc changes. No acute vertebral body fractures identified. Impression: 1. Patient is only mild chronic appearing changes in the bases with no significant mass, consolidation or significant suggestion of pulmonary fibrosis. 2. Significant postoperative changes in the upper abdomen. History of Present Illness HPI: Pleasant 71 y/o female brought to ER by EMS for increasingly severe [place] and hypoglycemia. is been progressively worse over the past couple of months. She is ok at rest but worse with movement etc, says she likes to be active and was trying not to let on with the [facility] staff bc she didn't want them to restrict her activities. She denies chest pain, minimal to no cough, has had low grade fevers past few days 100.4 and 99.4. She saw her PCP's (Dr Silveira) [facility] who rx'd bactrim DS 1 po BID 1 week ago from past . She has been compliant with this, but doesnt really feel better. Some mild dysuria She saw her hand funnel coater, Dr Peoples about 1 week ago from Tuesday. He increased oral lasix dose but didn't find any edema. She has inceased weight she thinks by 11 lb in 10 days, says has gone from 206-222lb in about 2 weeks. She denies dietary indiscretions re: sodium. She doesn't recall EF, last echo. She has had longstanding afib (permanent per pt) rate controlled and has been compliant with amio and pradaxa. Denies chest pain. Has Hx SWATI but her machine has been broken she's supposed to get fixed next week. Has seen a lung dr previously in [place] (DR David) who Rx'd her inhaled meds and Rx cpap I have included discussion below from ER provider: Patient had episode of hypoglycemia today inspite of normal po intake. Patient takes glipizide which she had this AM but states she ate today. She had reported low blood sugar throughout the day which responded with po intake EMS recorded a blood sugar [employer] of 38 which responded with 1/2 amp D50 and blood sugar 108. Blood sugar shortly after is 74. She got low again in the ER and after eating some crackers came up again. Her room air sats were mid 90's in ER. Hospital Course This is a general summary of the patient's hospital course. For more details refer to the complete medical record. Hospital course: Acute on chronic CHF-diastolic/valvular Hyperkalemia-not POA Hypoglycemia, medication induced Diabetes mellitus, with chronic diabetic nephropathy, no long-term insulin Acute on chronic renal failure CKD, stage III A. fib, paroxysmal COPD SWATI CAD Restless leg syndrome Escherichia coli UTI, treated CHF Mrs. Berkowitz was hospitalized with increasing dyspnea and hypoglycemia. BNP was elevated and there was minor increase in markings on chest x-ray suggestive of heart failure. She was treated with Bumex in the emergency room prior to hospitalization. Lasix was continued following admission. The patient diuresed from admission weight of 98.4 kg down to 93.2 kg at discharge. Creatinine was above baseline on admission and initially suspected to be due to recent administration of a sulfa antibiotic however remained essentially the same throughout the admission and will require follow-up as an outpatient. Echocardiogram was obtained demonstrating preserved LV function with LVH and minor valvular dysfunction. Prior to discharge it was elected to decrease frequency of diuretic administration to 3 times a week after discussion with Dr. Blackwood due to mild orthostasis and relatively low blood pressures. The patient was not hypoxic throughout the hospitalization. Amiodarone was held shortly after admission due to bradycardia but later resumed at 100 mg daily per recommendation of cardiology. High-resolution CT of the chest was obtained to exclude amiodarone toxicity as a factor in the patient 's presenting dyspnea. CT was unremarkable but follow-up high-resolution CT and PFTs with DLCO in 3 months was recommended to monitor lung function on amiodarone. Heart rate was typically in the 50s/60s throughout the hospitalization. Creatinine was 1.8 on admission and fluctuated slightly throughout the hospital course returning to 1.8 at discharge. Baseline appears to be about 1.3. Outpatient follow-up will be needed to determine if this reflects normal baseline with her diabetic nephropathy or combined insult due to heart failure, hypertension, and medications. Hemoglobin was depressed on admission at 8.3 but improved progressively through the hospital course with diuresis. The patient's anemia is managed as an outpatient by hematology and no interventions were needed. Hypoglycemia was present in the emergency room and was attributed to sulfonylurea use. The oral agent was discontinued on admission and corrective insulin was utilized. Mrs. Berkowitz became very concerned about resultant hyperglycemia later in the hospital course and subsequently glipizide was resumed at 5 mg daily instead of twice a day. Blood sugars will need to be monitored to determine stability of glucose control and to watch for recurrent hypoglycemia. Patient may benefit from change to an alternate agent especially if creatinine remains in the current range. A1c indicated tight control overall. Urine culture was positive for Escherichia coli and the patient was treated with Augmentin for total of 5 days during hospital course with antibiotics completed prior to discharge. The patient developed mild hyperkalemia on 02/15 requiring administration of oral Kayexalate. Spironolactone was subsequently discontinued. Between the 2 maneuvers potassium normalized and was 3.9 at discharge. Restless leg symptoms were described to variable degrees throughout the hospitalization. Patient was tilted for discharge on 02/18 at which time she described only minor discomfort in her legs. She denied dyspnea and remained on room air. Telemetry demonstrated sinus rhythm/sinus bradycardia with rare APCs. On examination the patient was alert and cooperative. Respirations were nonlabored with good airflow and no crackles or wheezing. Cardiac rhythm regular. Stable for discharge at this time with plans to follow-up with Dr. Roberts in approximately one week and Dr. Blackwood and Dr. Lorenz as previously scheduled or as needed. Time spent with patient: discharge greater than 30 minutes Discharge Plan - Med Rec/Dispo Referrals/Follow Up: iV Blackwood MD [Physician] - (If continued to have episodes of lightheadedness while lying down should see Dr. Blackwood soon) Kimmy Lorenz MD [Physician] - (As scheduled, may need to see Dr. Lorenz sooner if continue to have difficulty with leg symptoms) Lora Roberts DO [Family Provider] - 1 Week [place] Instructions: Heart Failure (GEN) Prescriptions: New GlipiZIDE [Glucotrol] 5 mg PO ACB30 tablet Tramadol [Ultram] 50 mg PO Q6HR PRN #30 tablet PRN Reason: P Furosemide [Lasix] 1 tab PO 3XW #30 tab Albuterol/Ipratropium [Duoneb] 3 ml AEROSOL Q4H PRN neb PRN Reason: Shortness Of Air/Wheezing Glucose Oral Gel 40% [Glutose 15] 37.5 gm PO PRN PRN tube PRN Reason: Hypoglycemia Trolamine Salicylate 10% Cream [Aspercreme] 1 applic TOP QID tube Continue Triamcinolone 0.25% Cream 15G [Kenalog] 1 applic TOP DAILY PRN #0 PRN Reason: DRY SKIN Dabigatran Etexilate Mesylate [Pradaxa] 75 mg PO BID #0 Amiodarone HCl 100 mg PO DAILY #0 Cyanocobalamin (B-12) [Vit. B-12] 1,000 mcg IM MONTHLY #0 Gabapentin 300 mg PO TID #0 Melatonin/Pyridoxine HCl (B6) [Melatonin 1 mg Tablet] 1 mg PO HS PRN #0 PRN Reason: INSOMNIA Gabapentin 400 mg PO BID #0 Nystatin Powder [Mycostatin] 1 applic TP BID PRN PRN Reason: Rash Acetaminophen 650 mg PO Q4H PRN PRN Reason: Fever CALCIUM CARBONATE Chewable [Tums Extra Strength] 750 mg PO QID PRN PRN Reason: Prn Orders Lidocaine/Prilocaine [EMLA 5gm] 1 applic TOP QID Fluticasone Nasal [place] [Flonase] 1 spray EA NOSTRIL DAILY Ropinirole HCl 1 mg PO BID Calcium Carbonate/Vitamin D3 [Caltrate 600 Plus D3 Tablet] 1 tab PO DAILY Arformoterol Neb [Brovana Neb] 15 mcg AEROSOL BID #0 Levothyroxine Sodium 125 mcg PO DAILY #0 Simvastatin 20 mg PO HS #0 Alendronate Sodium [Fosamax] 70 mg PO QFRIDAY #0 buPROPion HCl [Wellbutrin Xl] 150 mg PO DAILY #0 Ceramides 1,3,6-11 [Cerave] 1 applic TOP TUFR #0 Urea/Allantoin/Vit E Acetate [Flexitol Heel [place] Cream] 1 applic TOP HS #0 diphenhydrAMINE HCl [Diphenhydramine HCl] 25 mg PO Q6H PRN #0 PRN Reason: ITCHING Trazodone [Desyrel] 25 mg PO BID PRN PRN Reason: Anxiety guaiFENesin [Mucinex] 1,200 mg PO Q12H PRN PRN Reason: Congestion Citalopram [Celexa] 30 mg PO DAILY Budesonide 0.5 mg AEROSOL Q12H Discontinued Sulfamethox/Tmp [Bactrim Ds] 1 tab PO Q12H Pantoprazole Tab [Protonix Tab] 40 mg PO DAILY Nystatin Powder [Mycostatin] 1 applic TP TID Spironolactone [Aldactone] 25 mg PO DAILY #0 Albuterol Sulfate 2.5 mg AEROSOL Q4H PRN #0 PRN Reason: WHEEZING Tramadol HCl 50 mg PO Q6HR PRN #0 PRN Reason: PAIN glipiZIDE [Glipizide] 5 mg PO BID #0 Ondansetron [Zofran Odt] 8 mg PO Q8H PRN #0 PRN Reason: NAUSEA &/OR VOMITING Loperamide HCl [Loperamide] 2 mg PO Q6H PRN #0 PRN Reason: DIARRHEA Lysine 1,000 mg PO QID PRN #0 PRN Reason: Prn Orders Furosemide [Lasix] 20 mg PO DAILY Discharge Instructions/Outpatient Orders: Final Provider Discharge Instructions Location: Determined By Patient - Disposition [facility] ([facility])
== END 2017-02-18 14:20 | DRG 292 ==
LOC: ED 16:38 → MED 20:17
PROVIDERS: ADMIT Pediatrics; ATTEND Internal Medicine

== ENCOUNTER 2017-12-29 13:34 | Observation (INO) ==
[2017-12-29] MEDS ORDERED: MIDAZOLAM 2mg/2ml INJECTION IVP ONE (13:35)
[2017-12-29] MEDS ORDERED: FentaNYL 100 MCG/2 ML INJECTION IVP ONE (13:35)
[2017-12-29] MEDS ORDERED: MORPHINE SULFATE 10mg/ml VIAL IVP ONE (13:35)
[2017-12-29 13:56] VITALS: BMI 38.7
--- NOTE | 2017-12-29 14:51 | History & Physical Report ---
History of Present Illness Date: 12/29/17 Chief complaint: A-fib HPI: Andressa Berkowitz is a 72 y/o woman who states that she's had lightheadedness and a "strange feeling" that goes down her arms, for about a week. She reports that her pulse is usually "weird" - sometimes high and sometimes low, mostly slow. She's also had some left sided chest pain, described as a dull ache, intermittent in nature. She ate some corn chips about a week ago and since then has cut out salt - her weight went down from 205 to 202. She's noticing exertional dyspnea for a couple of weeks. She describes mild leg swelling. She denies palpitations. She's had occasional paresthesias to both arms. Vision has slowly worsened but no acute changes. Occasional headaches. No dysphagia. Chronic mild left sided weakness from an old stroke. Denies abd pain, n/v/d. She had C. diff about 2 months ago, treated x14 days - no diarrhea since. No dysuria or frequency. No fever/chills. No cough/cold sx. No rashes/unexplained bruising but does bruise easily (on Pradaxa for A-fib). She saw Dr. Blackwood in his clinic on 12/29/17 and was found to be in A-fib with RVR, rates 120s. She was admitted to the hospital, observation status, for further workup and treatment. Review of Systems All systems PM: 10-point ROS was reviewed, no additional remarkable complaints except (see HPI) Past Medical History Medical History: Medical History (Last Reviewed 12/01/17 @ 11:03 by Araseli Slater [facility]) Type 2 diabetes mellitus (Chronic) Depression (Chronic) Atrial fibrillation (Chronic) Anxiety (Chronic) GERD (gastroesophageal reflux disease) (Chronic) Anemia (Chronic) Myelodysplasia (myelodysplastic syndrome) (Chronic) Osteoporosis (Chronic) SWATI on CPAP (Chronic) COPD (chronic obstructive pulmonary disease) (Chronic) Stroke (Chronic) Onset Date: ~2014 LT sided weakness Thyroid disease (Chronic) Medical History Updates: CKD stage III - hypertensive. BCC. Anemia. Macular degeneration. HTN. OA. Echocardiogram on 02/12/17: 1. Normal LV systolic function with ejection fraction of about 55%. 2. Mitral annulus calcification with mild mitral regurgitation. 3. Aortic sclerosis. 4. Left ventricular hypertrophy. 5. Left atrial dilation. 6. Mild tricuspid regurgitation. Surgical History: -gastric bypass/"stomach surgery",. -bilateral wrist surgery from fx,. -thyroid nodule (benign) removal. -Left ring finger A1 joan release. 10-17-17 Family History: Family History (Last Reviewed 12/01/17 @ 11:03 by Araseli Slater [facility]) Brother Cancer Maternal Uncle Heart disease Mother Emphysema/COPD Cancer of lung Family History Updates: Son - hyperlipidemia. Mother - stomach cancer. Brother - kidney cancer. Brother - lung cancer Family History: As Above - Social History Smoking status: Never smoker Alcohol intake frequency: does not drink Housing: skilled nursing Social history: PCP - Dr. Roberts Renal - Dr. Mine Gamino Medications Home Medications Medication Instructions Recorded Confirmed Type Arformoterol Neb [Brovana Neb] 15 mcg AEROSOL BID #0 09/19/12 12/29/17 History Levothyroxine Sodium 125 mcg PO DAILY #0 06/03/14 12/29/17 History Simvastatin 20 mg PO HS #0 06/03/14 12/29/17 History Triamcinolone 0.25% Cream 15G 1 applicatio TOP DAILY PRN #0 12/26/14 12/29/17 History [Kenalog] Amiodarone HCl 100 mg PO DAILY #0 07/18/15 12/29/17 History Cyanocobalamin (B-12) [Vit. B-12] 1,000 mcg IM MONTHLY #0 07/18/15 12/29/17 History buPROPion HCl [Wellbutrin Xl] 150 mg PO DAILY #0 02/03/16 12/29/17 History Budesonide 0.5 mg AEROSOL Q12H 02/11/17 12/29/17 History CALCIUM CARBONATE Chewable [Tums 750 mg PO QID PRN 02/11/17 12/29/17 History Extra Strength] Fluticasone Nasal [place] [Flonase] 1 spray EA NOSTRIL DAILY 02/11/17 12/29/17 History Nystatin Powder [Mycostatin] 1 applicatio TP BID 02/11/17 12/29/17 History Ropinirole HCl 1 mg PO BID 02/11/17 12/29/17 History Celexa (citalopram) 20 mg tablet 30 mg PO DAILY tab 08/16/17 12/29/17 History Claritin (Loratadine) 10 mg tablet 10 mg PO DAILY 08/16/17 12/29/17 History melatonin 1 mg tablet 1 mg PO HS PRN tab 08/16/17 12/29/17 History Lasix (Furosemide) 20 mg tablet 20 mg PO DAILY 09/15/17 12/29/17 History capsaicin 0.025 % topical cream 1 applicatio TOP QID 09/15/17 12/29/17 History clobetasol 0.05 % topical cream 1 applicatio TOP BID 09/15/17 12/29/17 History loperamide 2 mg capsule 2 mg PO Q6H PRN cap 09/15/17 12/29/17 History mentholatum ointment See Label Instructions TOP .COMPLEX 09/15/17 12/29/17 History Acetaminophen [Tylenol] 650 mg PO Q4H PRN 12/29/17 12/29/17 History Alendronate [Fosamax 70 mg] 70 mg PO Q7D 12/29/17 12/29/17 History Ascorbic Acid 500 mg PO BID 12/29/17 12/29/17 History Calcium 600 + D [Caltrate + D] 1 tab PO DAILY 12/29/17 12/29/17 History Ceramides 1,3,6-11 [Cerave] 355 ml TP WEEKLY 12/29/17 12/29/17 History Dabigatran [Pradaxa] 1 cap PO BID 12/29/17 12/29/17 History DiphenhydrAMINE [Benadryl] 1 cap PO Q6H PRN 12/29/17 12/29/17 History Gabapentin [Neurontin] 800 mg PO TID 12/29/17 12/29/17 History Hydrocodone/APAP 5/325 [[place] 1 tab PO Q6H PRN 12/29/17 12/29/17 History 5/325] Lactobacillus Rhamnosus GG 1 each PO DAILY 12/29/17 12/29/17 History [Culturelle] Multivitamin [One Daily] 1 each PO DAILY 12/29/17 12/29/17 History Ondansetron HCl [Zofran] 4 mg PO Q8H PRN 12/29/17 12/29/17 History Oxycodone/Acetaminophen 5/325 1 tab PO Q6H PRN 12/29/17 12/29/17 History [Percocet 5/325] Pantoprazole Tab [Protonix] 1 mg PO HS 12/29/17 12/29/17 History Tramadol [Ultram] 50 mg PO Q6HR PRN 12/29/17 12/29/17 History Urea/Allantoin/Vit E Acetate 56 gm TP HS 12/29/17 12/29/17 History [Flexitol Heel [place] Cream] glipiZIDE [Glipizide ER] 2.5 mg PO BID 12/29/17 12/29/17 History Allergies Allergy/AdvReac Type Severity Reaction Status Date / Time diltiazem Allergy Unknown Verified 12/29/17 13:52 flecainide Allergy Unknown Verified 12/29/17 15:53 nitrofurantoin Allergy Unknown ITCHING Verified 12/29/17 13:52 Exam Vital Signs: Temperature 98.1 F 12/29/17 13:51 Pulse Rate 132 H 12/29/17 13:51 Respiratory Rate 16 12/29/17 13:51 Blood Pressure 130/65 12/29/17 13:51 Pulse Oximetry 95 12/29/17 13:51 Height/Weight/BMI: Height 1.55 m Weight 93 kg Body Mass Index 38.7 - Constitutional Present: no acute distress, well nourished, well developed - Routine HEENT Exam Head: Present: normocephalic Eye: Present: PERRL. Absent: conjunctival icterus, scleral injection ENT: Present: mucous membranes dry - Routine Neck Exam Present: supple - Routine Respiratory Exam Present: decreased breath sounds (at bases), CTA bilaterally - Routine Cardiovascular Exam Present: tachycardia, irregularly irregular - Routine Abdominal Exam Present: soft, normoactive bowel sounds, non distended, non tender - Routine Extremities Exam Present: edema (trace BLE), pulses intact - Routine Back/Spine/Pelvis Exam Back/Spine: Absent: vertebral tenderness - Routine Skin Exam Present: intact, dry, warm - Routine Neurological Exam Present: alert, oriented X3, CN II-XII intact, moving all extremities, vision grossly intact, hearing grossly intact, normal speech. Absent: sensory deficit , motor deficit, altered mental status, facial asymmetry - Routine Psychiatric Exam Present: normal affect, normal thought process, cooperative Results - Labs CBC & Chem 7: 12/29/17 15:38 12/29/17 15:38 Assessment and Plan (1) Atrial fibrillation Current visit: No Status: Chronic Assessment and Plan: ASSESSMENT Atrial fibrillation with RVR, rates 130s Left chest pain Chronic diastolic/valvular CHF Diabetes mellitus with chronic diabetic nephropathy Restless leg syndrome COPD SWATI, CPAP use CKD stage III Stroke - 2014 HTN MDS Anemia - iron and Vit B12 def. Anxiety/depression Macular degeneration PLAN Admit, obs status. Dr. Dietrich attending. Workup ordered: CBC, CMP, trop x3, UA, TSH, CXR, EKG. Monitor on Tele. Consult Dr. Blackwood. Give diltiazem 10 mg IV x1. BP stable. Monitor blood sugars. Resume necessary home meds. Advanced Directives: +DPOA, +Living Will, DNR. [facility] records reviewed. D/W Dr. Dietrich. DVT Prophylaxis: Pradaxa GI Prophylaxis: Protonix Resuscitation Status: Do Not Resuscitate - Physician Narrative Physician: Latanya Dietrich MD Narrative: Date: 12/29/17 Time: 1939 I have independently evaluated and examined this patient. I reviewed the chart, the patient's history, and the VALVE MAKER/PA's documented findings as above. We discussed and formulated the assessment and plan as above with additions as below: Mrs. Berkowitz describes intermittent dyspnea, palpitations, and minor tightness or discomfort in her chest for the past week and possibly longer. She has a history of atrial fibrillation which was previously controlled. She saw Dr. Blackwood in the office today for regular follow-up visit and was found to be in atrial fibrillation with rapid ventricular response and was referred for hospitalization for COLTEN cardioversion tomorrow. NAD, resting comfortably with head of bed elevated 15-20, oxygen saturation 95 % on room air Respirations nonlabored, good airflow, breath sounds clear Irregular rhythm, S1-S2 EKG reviewed by myself-atrial fibrillation with rate 122, old inferior ID, low voltage, no acute ST/T-wave changes but diffuse T wave flattening present Chest x-ray reviewed by myself-mildly kyphotic, minor vascular redistribution without overt heart failure or pleural effusions. Heart size borderline. Plans discussed with Dr. Blackwood. Earlier this evening heart rate is about 130 and patient was given 2.5 mg of IV Lopressor resulting in slowing of heart rate into the low 100-110 range however blood pressure dropped to 88/51. Subsequently we'll avoid further IV medications (note allergy to diltiazem); started on low-dose oral metoprolol 12.5 mg twice a day and Dr. Blackwood has increased amiodarone dose to 400 mg twice a day short-term. Patient aware of plans for cardioversion in the morning. Hospital Course Summary Disclaimer: The visit summary below is not to be considered part of the above Progress Note. Hospital Course: 12/29/17 Admit, obs status. Dr. Dietrich attending. Workup ordered: CBC, CMP, trop x3, UA, TSH, CXR, EKG. Monitor on Tele. Consult Dr. Blackwood. Give diltiazem 10 mg IV x1. BP stable. Monitor blood sugars. Resume necessary home meds. Advanced Directives: +DPOA, +Living Will, DNR.
[2017-12-29] MEDS ORDERED: SENNA + DOCUSATE TABLET PO PRN (15:18)
[2017-12-29] MEDS ORDERED: ONDANSETRON 4 MG/2 ML INJECTION IVP PRN (15:18)
[2017-12-29] MEDS ORDERED: DiphenhydrAMINE 25 MG CAPSULE PO PRN (15:21)
[2017-12-29] MEDS ORDERED: CALCIUM CARBONATE Chewable 750mg TABLET PO PRN (15:21)
[2017-12-29] MEDS ORDERED: MELATONIN 1 MG TABLET PO PRN (15:21)
[2017-12-29] MEDS ORDERED: HYDROCODONE/APAP 5mg/325mg TABLET PO PRN (15:21)
[2017-12-29] MEDS ORDERED: ACETAMINOPHEN 325 MG TABLET PO PRN (15:21)
[2017-12-29] MEDS ORDERED: TRAMADOL 50 MG TABLET PO PRN (15:21)
[2017-12-29] MEDS ORDERED: Oxycodone/Acetaminophen 5/325 1 TAB PO PRN (15:21)
[2017-12-29] MEDS ORDERED: DiltiaZEM 25 MG/5 ML INJECTION IVP ONE (15:30)
[2017-12-29] MEDS ORDERED: METOPROLOL 5mg/5ml INJECTION IVP ONE (16:05)
--- NOTE | 2017-12-29 17:07 | XRay Report ---
INDICATION: a-fib, SOA PROCEDURE: CHEST 2-VIEWS UPRIGHT (PA & LAT) Encounter: Initial COMPARISON: June 30, 2017 Findings: The lungs are stable in appearance without new focal airspace consolidation. There is no pleural effusion or pneumothorax. The heart size, pulmonary vascularity and mediastinal contours are unchanged. Left upper quadrant surgical clips. IMPRESSION: Stable appearance of the chest without acute cardiopulmonary disease. .
[2017-12-29] MEDS ORDERED: --POM--GABAPENTIN 300 MG CAPSULE PO SCH (17:45)
[2017-12-29] MEDS ORDERED: METOPROLOL 5mg/5ml INJECTION IVP PRN (18:37)
--- NOTE | 2017-12-29 18:49 | Cardiology Consult Note ---
History of Present Illness Consult reason: atrial fibrillation, known to you History of present illness: 72-year-old female well known to me with history of mitral insufficiency atrial fibrillation and congestive heart failure and chronic kidney disease. She had a recent decompensation of her heart failure just over a month ago cleared up with the adjustment of her diuretics and improved diet. She has been having intermittent tachycardia at the assisted. On December [address] Mine Gamino lowered her Lasix to 20 mg daily due to reported dizziness and relatively low blood pressure readings. Patient has been feeling dizzy upon getting up and worsened short of breath since Tuesday. Feeling a bit tight in her chest but no a pressure or radiating pain. She has a history of normal coronary angiogram several years ago at [facility]. Yesterday for standing she had a blood pressure dropped to 72. No falls or syncope. Seen in the office today noted to be back in A. fib with RVR rate of about 130 BPM but did not look in acute distress, so it was felt best to admit her directly to The hospital and Dr. Endy Camarillo was contacted and graciously admitted her. Patient received IV diltiazem 10 mg on admission, she still little tachycardic in the 1 teens when I examine her but she was not connected yet to telemetry. No active dyspnea or chest pain. Already feeling a bit better. By mouth metoprolol was ordered as well. She patient states his been compliant with her Pradaxa. She has persisted history of a small stroke/TIA several years ago. Review of Systems All systems PM: 10-point ROS was reviewed, no additional remarkable complaints except PFSH Patient Stated Medical History Cerebrovascular Accident Yes: 2015-left side weakness Migraine Yes Paralysis No Seizures No Syncope No Cataracts Yes Dental Problems Yes: full dentures Glaucoma Yes Other HEENT Yes: WEARS GLASSES Angina No Cardiac Arrhythmia Yes: AFIB Congestive Heart Failure Yes Coronary Artery Disease Yes Heart Murmur No Hypertension No Hypotension No Myocardial Infarction No Rheumatic Fever No Valvular Heart Disease No Other Cardiology Yes: VARICOSE VEIN STRIPPING Asthma Yes Bronchitis Yes Chronic Obstructive Pulmonary Yes Disease (COPD) Pneumonia Yes Pulmonary Edema No Pulmonary Embolism No Sleep Apnea Yes: DOES NOT USE C-PAP Tuberculosis No Other Respiratory No Diabetes Mellitus Type 1 No Diabetes Mellitus Type 2 Yes Cirrhosis No Gastroesophageal Reflux Yes Disease Gastrointestinal Bleeding No Hepatitis No Hiatal Hernia Yes Obstructive Bowel No Ulcer No Other GI No Hx Incontinence Yes Hx Renal Disease Yes Hx Urinary Tract Infection Yes Anemia Yes: chronic Osteoarthritis Yes Other Musculoskeletal No Clostridium Difficile Yes: 10/2017 Shingles Yes Anesthesia Reactions No Blood Transfusions Yes: for anemia Chemotherapy No Malignant Hyperthermia No Other Yes: POSSIBLE LEUKEMIA Depression Yes Post Menopausal Yes Now No Clinic Medical History (Last Reviewed 12/01/17 @ 11:03 by Araseli Slater [facility]) Type 2 diabetes mellitus (Chronic Medical) Depression (Chronic Medical) Atrial fibrillation (Chronic Medical) Anxiety (Chronic Medical) GERD (gastroesophageal reflux disease) (Chronic Medical) Anemia (Chronic Medical) Myelodysplasia (myelodysplastic syndrome) (Chronic Medical) Osteoporosis (Chronic Medical) SWATI on CPAP (Chronic Medical) COPD (chronic obstructive pulmonary disease) (Chronic Medical) Stroke (Chronic Medical ~2014) LT sided weakness Thyroid disease (Chronic Medical) Medical History Updates: CKD stage III - hypertensive. BCC. Anemia. Macular degeneration. HTN. OA. Echocardiogram on 02/12/17: 1. Normal LV systolic function with ejection fraction of about 55%. 2. Mitral annulus calcification with mild mitral regurgitation. 3. Aortic sclerosis. 4. Left ventricular hypertrophy. 5. Left atrial dilation. 6. Mild tricuspid regurgitation. Surgical History: -gastric bypass/"stomach surgery",. -bilateral wrist surgery from fx,. -thyroid nodule (benign) removal. -Left ring finger A1 joan release. 10-17-17 Family History: Family History (Last Reviewed 12/01/17 @ 11:03 by Araseli Slater [facility]) Brother Cancer Maternal Uncle Heart disease Mother Emphysema/COPD Cancer of lung Family History Updates: Son - hyperlipidemia. Mother - stomach cancer. Brother - kidney cancer. 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 B-12] 1,000 mcg IM MONTHLY #0 07/18/15 12/29/17 History buPROPion HCl [Wellbutrin Xl] 150 mg PO DAILY #0 02/03/16 12/29/17 History Budesonide 0.5 mg AEROSOL Q12H 02/11/17 12/29/17 History CALCIUM CARBONATE Chewable [Tums 750 mg PO QID PRN 02/11/17 12/29/17 History Extra Strength] Fluticasone Nasal [place] [Flonase] 1 spray EA NOSTRIL DAILY 02/11/17 12/29/17 History Nystatin Powder [Mycostatin] 1 applicatio TP BID 02/11/17 12/29/17 History Ropinirole HCl 1 mg PO BID 02/11/17 12/29/17 History Celexa (citalopram) 20 mg tablet 30 mg PO DAILY tab 08/16/17 12/29/17 History Claritin (Loratadine) 10 mg tablet 10 mg PO DAILY 08/16/17 12/29/17 History melatonin 1 mg tablet 1 mg PO HS PRN tab 08/16/17 12/29/17 History Lasix (Furosemide) 20 mg tablet 20 mg PO DAILY 09/15/17 12/29/17 History capsaicin 0.025 % topical cream 1 applicatio TOP QID 09/15/17 12/29/17 History clobetasol 0.05 % topical cream 1 applicatio TOP BID 09/15/17 12/29/17 History loperamide 2 mg capsule 2 mg PO Q6H PRN cap 09/15/17 12/29/17 History mentholatum ointment See Label Instructions TOP .COMPLEX 09/15/17 12/29/17 History Acetaminophen [Tylenol] 650 mg PO Q4H PRN 12/29/17 12/29/17 History Alendronate [Fosamax 70 mg] 70 mg PO Q7D 12/29/17 12/29/17 History Ascorbic Acid 500 mg PO BID 12/29/17 12/29/17 History Calcium 600 + D [Caltrate + D] 1 tab PO DAILY 12/29/17 12/29/17 History Ceramides 1,3,6-11 [Cerave] 355 ml TP WEEKLY 12/29/17 12/29/17 History Dabigatran [Pradaxa] 1 cap PO BID 12/29/17 12/29/17 History DiphenhydrAMINE [Benadryl] 1 cap PO Q6H PRN 12/29/17 12/29/17 History Gabapentin [Neurontin] 800 mg PO TID 12/29/17 12/29/17 History Hydrocodone/APAP 5/325 [[place] 1 tab PO Q6H PRN 12/29/17 12/29/17 History 5/325] Lactobacillus Rhamnosus GG 1 each PO DAILY 12/29/17 12/29/17 History [Culturelle] Multivitamin [One Daily] 1 each PO DAILY 12/29/17 12/29/17 History Ondansetron HCl [Zofran] 4 mg PO Q8H PRN 12/29/17 12/29/17 History Oxycodone/Acetaminophen 5/325 1 tab PO Q6H PRN 12/29/17 12/29/17 History [Percocet 5/325] Pantoprazole Tab [Protonix] 1 mg PO HS 12/29/17 12/29/17 History Tramadol [Ultram] 50 mg PO Q6HR PRN 12/29/17 12/29/17 History Urea/Allantoin/Vit E Acetate 56 gm TP HS 12/29/17 12/29/17 History [Flexitol [place]el [place] Cream] glipiZIDE [Glipizide ER] 2.5 mg PO BID 12/29/17 12/29/17 History Allergies Allergy/AdvReac Type Severity Reaction Status Date / Time diltiazem Allergy Unknown Verified 12/29/17 13:52 flecainide Allergy Unknown Verified 12/29/17 15:53 nitrofurantoin Allergy Unknown ITCHING Verified 12/29/17 13:52 Exam Vital signs: Temperature 98.1 F 12/29/17 13:51 Pulse Rate 115 H 12/29/17 17:36 Respiratory Rate 16 12/29/17 16:59 Blood Pressure 103/63 12/29/17 17:36 Pulse Oximetry 95 12/29/17 16:59 - Constitutional no acute distress, obese, other (chronically ill) - Routine HEENT Exam Head: Present: normocephalic, atraumatic Eye: Present: EOMI, PERRL ENT: Present: mucous membranes moist Nose: moist mucous membranes - Routine Neck Exam Present: normal carotid upstroke. Absent: JVD, carotid bruit, lymphadenopathy, thyromegaly - Routine Respiratory Exam Present: CTA bilaterally - Routine Cardiovascular Exam Present: murmur, tachycardia, irregularly irregular - Routine Abdominal Exam Present: soft, normoactive bowel sounds, non distended, non tender. Absent: organomegaly, mass - Routine Extremities Exam Present: no edema, pulses intact, normal capillary refill. Absent: cyanosis, clubbing - Routine Skin Exam Present: intact, dry, warm. Absent: cyanosis, erythema - Routine Neurological Exam Present: alert, oriented X3, CN II-XII intact, moving all extremities, vision grossly intact, hearing grossly intact, normal speech. Absent: motor deficit, hemineglect, facial asymmetry - Routine Psychiatric Exam Present: normal affect, normal thought process, cooperative, good insight, good judgment Results 12/29/17 15:38 12/29/17 15:38 Cardiac Enzymes 12/29/17 Range/Units 15:38 AST 31 (14-36) U/L Troponin I < 0.012 (0-0.12) ng/ml CBC 12/29/17 Range/Units 15:38 WBC 4.8 (4.5-11.0) T/MM3 RBC 3.60 L (4.00-5.20) M/MM3 Hgb 11.7 L (12-16) GM/DL Hct 36.7 (36-46) % Plt Count 186 (130-400) T/MM3 Neut # (Auto) 2.8 (1.8-7.7) T/MM3 Lymph # (Auto) 1.3 (1-4.8) T/MM3 [place] # (Auto) 0.5 (0-0.8) T/MM3 Eos # (Auto) 0.2 (0-0.5) T/MM3 Baso # (Auto) 0.0 (0-0.2) T/MM3 Comprehensive Metabolic Panel 12/29/17 Range/Units 15:38 Sodium 144 (136-146) MEQ/L Potassium 4.2 (3.6-5) MEQ/L Chloride 111 H (98-107) MEQ/L Carbon Dioxide 24 (22-30) MEQ/L BUN 31.0 H (7-17) MG/DL Creatinine 1.1 (0.7-1.2) mg/dL Glucose 86 (65-110) MG/DL Calcium 8.6 (8.4-10.2) MG/DL AST 31 (14-36) U/L ALT 20 (1-35) U/L Alkaline Phosphatase 154 H (38-126) U/L Total Protein 7.1 (6.3-8.2) g/dL Albumin 3.6 (3.5-5.0) g/dL Intake and Output 12/29/17 12/29/17 12/29/17 06:59 14:59 22:59 Intake Total 0 / 0 120 / 120 Balance 0 / 0 120 / 120 Intake: Oral 0 / 0 120 / 120 Other: Urine Appearance Clear Urine Color Yellow Urine Odor Foul Normal Size of Bowel Movement Small # Voids 1 1 # Bowel Movements 1 Weight 93 kg Patient Weight 12/30/17 06:59 Weight 93 kg - Imaging and Cardiology Echo: report reviewed Imaging & Cardiology Narrative: 12/29/17 19:37 A chest x-ray without pulmonary congestion - EKG Interpretation EKG: no acute changes EKG shows: atrial fibrillation Assessment and Plan - Assessment and Plan Symptomatic recurrent atrial fibrillation with RVR History of mild sinus bradycardia Chronic compensated congestive heart failure, diastolic/valvular, recent decompensation managed in outpatient settings Mitral regurgitation History of flecainide induced VT History of normal coronary angiogram History of TIA/small ischemic stroke Chronic anticoagulation Comorbidities with poor general functional status Chronic kidney disease, sees Dr. Martin Gamino Indication alternatives risks and benefits of a COLTEN cardioversion full discussed the patient detail , possible complications, the most severe being severe arrhythmia are approximately half percent chance of a stroke discussed , patient is in agreement, set up for the morning at 8:30 make her nothing by mouth tonight except meds As patient failed amiodarone 100 mg daily, I'm going to load her with 400 twice a day for 2 days then her new maintenance dose of 200 mg daily Add IV metoprolol when necessary for tachycardia Expect a need to discontinue by mouth metoprolol following cardioversion due to history of sinus bradycardia, will keep it going tonight to help with rate control Continue anticoagulation with Pradaxa Hospital Course Summary Disclaimer: The visit summary below is not to be considered part of the above Progress Note. Hospital Course: 12/29/17 Admit, obs status. Dr. Dietrich attending. Workup ordered: CBC, CMP, trop x3, UA, TSH, CXR, EKG. Monitor on Tele. Consult Dr. Blackwood. Give diltiazem 10 mg IV x1. BP stable. Monitor blood sugars. Resume necessary home meds. Advanced Directives: +DPOA, +Living Will, DNR.
[2017-12-29] MEDS: GLIPIZIDE 2.5 MG PO SCH (20:46)
[2017-12-29] MEDS: ROPINIROLE 1 MG TABLET PO SCH (20:46)
[2017-12-29] MEDS: CLOBETASOL 0.05% CREAM 15gm TOP SCH (20:47)
[2017-12-29] MEDS: GABAPENTIN 800 MG TABLET PO SCH (20:47)
[2017-12-29] MEDS: AMIODARONE 200 MG TABLET PO SCH (20:49)
[2017-12-29] MEDS ORDERED: PANTOPRAZOLE 20 MG TABLET PO SCH (21:00)
[2017-12-29] MEDS ORDERED: SIMVASTATIN 20 MG TABLET PO SCH (21:00)
[2017-12-29] MEDS: ARFORMOTEROL NEB 15mcg/2ml AEROSOL SCH (23:01)
[2017-12-29] MEDS: BUDESONIDE INH.SOLN 0.5mg/2ml NEB AEROSOL SCH (23:02)
[2017-12-30] MEDS: LEVOTHYROXINE 125 MCG TABLET PO SCH ×2 (05:34→05:37)
[2017-12-30] MEDS: ALENDRONATE 70 MG TABLET PO SCH ×2 (05:35→05:37)
[2017-12-30] MEDS ORDERED: SALINE FLUSH 10ml SYRINGE ONE (06:48)
[2017-12-30] MEDS: ARFORMOTEROL NEB 15mcg/2ml AEROSOL SCH (08:00)
[2017-12-30] MEDS: BUDESONIDE INH.SOLN 0.5mg/2ml NEB AEROSOL SCH (08:00)
[2017-12-30] MEDS ORDERED: LORATADINE 10 MG TABLET PO SCH (09:00)
[2017-12-30] MEDS ORDERED: BuPROPion XL 150mg (24HR) TABLET PO SCH (09:00)
[2017-12-30] MEDS ORDERED: FUROSEMIDE 20 MG TABLET PO SCH (09:00)
[2017-12-30] MEDS ORDERED: FLUTICASONE NASAL SPRAY 50mcg EA NOSTRIL SCH (09:00)
[2017-12-30] MEDS ORDERED: CITALOPRAM 20 MG TABLET PO SCH (09:00)
[2017-12-30] MEDS ORDERED: AMIODARONE HCL 100 MG PO SCH (09:00)
[2017-12-30] MEDS ORDERED: AMIODARONE 200 MG TABLET PO SCH (09:00)
[2017-12-30] MEDS ORDERED: BISACODYL 10 MG SUPPOSITORY RECTALLY PRN (09:25)
[2017-12-30] MEDS ORDERED: NITROGLYCERIN 0.4 MG SUBLINGUAL TABLET SL PRN (09:25)
[2017-12-30] MEDS ORDERED: MAG-AL + SIM ORAL LIQUID 30ml PO PRN (09:25)
[2017-12-30] MEDS ORDERED: LORazepam 1 MG TABLET PO PRN (09:25)
[2017-12-30 09:30] VITALS: TEMP 97.9
--- NOTE | 2017-12-30 09:32 | Cardiology Progress Note ---
Subjective Interval history: breathing easier, ahs been up to BR. no cp dizziness or palpitaions afib 110's-120's Exam Vital signs: Temperature 97.9 F 12/30/17 07:31 Pulse Rate 54 L 12/30/17 09:13 Respiratory Rate 20 12/30/17 09:13 Blood Pressure 89/58 12/30/17 09:13 Pulse Oximetry 98 12/30/17 09:13 Inpatient Medications: Generic Name Dose Route Start Last Admin Trade Name Freq PRN Reason Stop Dose Admin Acetaminophen 650 mg 12/29/17 15:21 Tylenol PO Q4H PRN Pain Hydrocodone Bitart/Acetaminophen 1 tab 12/29/17 15:21 [place] 5/325 PO Q6H PRN Pain Alendronate Sodium 70 mg 12/30/17 06:00 12/30/17 05:37 Fosamax 70 Mg PO Not Given Fr@0600 ISADORA Amiodarone HCl 400 mg 12/29/17 21:00 12/29/17 20:49 Pacerone PO 12/31/17 21:00 400 mg BID ISADORA Administration Amiodarone HCl 200 mg 01/01/18 09:00 Pacerone PO DAILY ISADORA Arformoterol Tartrate 15 mcg 12/29/17 21:00 12/30/17 08:00 Brovana Neb AEROSOL 15 mcg BID ISADORA Administration Budesonide 0.5 mg 12/29/17 15:30 12/30/17 08:00 Pulmicort Inhalation AEROSOL 0.5 mg Q12H ISADORA Administration Bupropion HCl 150 mg 12/30/17 09:00 Wellbutrin Xl PO DAILY ISADORA Calcium Carbonate 750 mg 12/29/17 15:21 Tums Extra Strength PO QID PRN PRN orders Capsaicin 1 applic 12/29/17 17:00 12/29/17 20:48 Trixaicin TOP 1 applic QID ISADORA Administration Citalopram Hydrobromide 30 mg 12/30/17 09:00 Celexa PO DAILY ISADORA Clobetasol Propionate 1 applic 12/29/17 21:00 12/29/17 20:47 Temovate Cream TOP 1 applic BID ISADORA Administration Dabigatran 150 mg 12/29/17 21:00 12/29/17 20:46 Pradaxa PO 150 mg BID ISADORA Administration Diphenhydramine HCl 25 mg 12/29/17 15:21 Benadryl PO Q6H PRN Itching Fluticasone Propionate 1 spray 12/30/17 09:00 Flonase EA NOSTRIL DAILY [facility] Furosemide 20 mg 12/30/17 09:00 Lasix 20 Mg Tab PO DAILY ISADORA Gabapentin 800 mg 12/29/17 21:00 12/29/17 20:47 Neurontin PO 800 mg TID ISADORA Administration Glipizide 2.5 mg 12/29/17 21:00 12/29/17 20:46 Glucotrol Xl PO 2.5 mg BID ISADORA Administration Levothyroxine Sodium 125 mcg 12/30/17 06:30 12/30/17 05:37 Synthroid PO Not Given ACB ISADORA Loratadine 10 mg 12/30/17 09:00 Claritin PO DAILY [facility] Melatonin 1 mg 12/29/17 15:21 Melatonin PO HS PRN Sleep Ondansetron HCl 4 mg 12/29/17 15:18 Zofran IVP Q6H PRN Nausea &/or vomiting Oxycodone/Acetaminophen 1 tab 12/29/17 15:21 Percocet 5/325 PO Q6H PRN Pain Pantoprazole Sodium 20 mg 12/29/17 21:00 12/29/17 20:46 Protonix PO 20 mg HS [facility] Administration Ropinirole HCl 1 mg 12/29/17 21:00 12/29/17 20:46 Requip PO 1 mg BID ISADORA Administration Senna/Docusate Sodium 1 tab 12/29/17 15:18 Senna Plus Tablet PO BID PRN Constipation Simvastatin 20 mg 12/29/17 21:00 12/29/17 20:47 Zocor PO 20 mg HS [facility] Administration Tramadol HCl 50 mg 12/29/17 15:21 Ultram PO Q6HR PRN Pain Discontinued Medications Generic Name Dose Route Start Last Admin Trade Name Freq PRN Reason Stop Dose Admin Amiodarone HCl 100 mg 12/30/17 09:00 Pacerone PO DAILY [facility] Diltiazem HCl 10 mg 12/29/17 15:30 12/29/17 16:07 Cardizem 25 Mg Inj IVP 12/29/17 15:31 Not Given O ONE Gabapentin 900 mg 12/29/17 17:45 12/29/17 18:02 Neurontin PO Not Given TID [facility] Metoprolol Tartrate 2.5 mg 12/29/17 16:05 12/29/17 16:11 Lopressor IVP 12/29/17 16:06 2.5 mg ONCE ONE Administration Metoprolol Tartrate 12.5 mg 12/29/17 17:49 12/29/17 18:13 Lopressor PO 12.5 mg BIDWM ISADORA Administration Metoprolol Tartrate 5 mg 12/29/17 18:37 Lopressor IVP Q6H PRN Non-Formulary Medication 100 mg 12/30/17 09:00 Amiodarone Hcl [Amiodarone Hcl] PO DAILY [facility] - Constitutional no acute distress - Routine HEENT Exam Head: Present: normocephalic, atraumatic Eye: Present: EOMI, PERRL ENT: Present: mucous membranes moist - Routine Neck Exam Present: supple, normal carotid upstroke. Absent: JVD, carotid bruit, lymphadenopathy, thyromegaly - Routine Respiratory Exam Present: CTA bilaterally - Routine Cardiovascular Exam Present: tachycardia, irregularly irregular - Routine Abdominal Exam Present: soft, normoactive bowel sounds, non distended, non tender - Routine Extremities Exam Present: no edema. Absent: cyanosis, clubbing - Routine Neurological Exam Present: alert, oriented X3, CN II-XII intact, moving all extremities, hearing grossly intact, normal speech. Absent: motor deficit, hemineglect, facial asymmetry - Routine Psychiatric Exam Present: normal affect, normal thought process, cooperative, good insight, good judgment Results 12/30/17 04:19 12/30/17 04:19 Cardiac Enzymes 12/29/17 12/29/17 12/30/17 Range/Units 15:38 21:33 04:19 AST 31 (14-36) U/L Troponin I < 0.012 < 0.012 < 0.012 (0-0.12) ng/ml CBC 12/29/17 12/30/17 Range/Units 15:38 04:19 WBC 4.8 4.7 (4.5-11.0) T/MM3 RBC 3.60 L 3.50 L (4.00-5.20) M/MM3 Hgb 11.7 L 11.4 L (12-16) GM/DL Hct 36.7 35.8 L (36-46) % Plt Count 186 185 (130-400) T/MM3 Neut # (Auto) 2.8 2.6 (1.8-7.7) T/MM3 Lymph # (Auto) 1.3 1.4 (1-4.8) T/MM3 [place] # (Auto) 0.5 0.4 (0-0.8) T/MM3 Eos # (Auto) 0.2 0.3 (0-0.5) T/MM3 Baso # (Auto) 0.0 0.0 (0-0.2) T/MM3 Comprehensive Metabolic Panel 12/29/17 12/30/17 Range/Units 15:38 04:19 Sodium 144 141 (136-146) MEQ/L Potassium 4.2 3.9 (3.6-5) MEQ/L Chloride 111 H 108 H (98-107) MEQ/L Carbon Dioxide 24 24 (22-30) MEQ/L BUN 31.0 H 29.0 H (7-17) MG/DL Creatinine 1.1 1.1 (0.7-1.2) mg/dL Glucose 86 152 H (65-110) MG/DL Calcium 8.6 8.5 (8.4-10.2) MG/DL AST 31 (14-36) U/L ALT 20 (1-35) U/L Alkaline Phosphatase 154 H (38-126) U/L Total Protein 7.1 (6.3-8.2) g/dL Albumin 3.6 (3.5-5.0) g/dL Intake and Output 12/29/17 12/30/17 12/30/17 22:59 06:59 14:59 Intake Total 120 / 120 Output Total 200 / 200 Balance 120 / 120 -200 / -200 Intake: Oral 120 / 120 Output: Urine 200 / 200 Other: Urine Appearance Cloudy Clear Urine Color Pale Yellow Yellow Urine Odor Foul Strong Stool Color Brown Brown Stool Consistency Soft Soft Formed Formed Size of Bowel Movement Small Moderate # Voids 1 1 # Bowel Movements 1 1 Weight 93.2 kg Patient Weight 12/31/17 06:59 Weight 93.2 kg - EKG Interpretation EKG shows: atrial fibrillation Assessment and Plan - Assessment and Plan afib w RVR CHF cont. Rx. COLTEN/CV IV Vesred 4 mg Fentanyl 50 mcg cetacaine spray no complications successful SB 56 bmp. d/c metorpolol cont amio and pradaxa ok for d/c home late today after recovery and ambulation f/u w PCP 2 wks f/y w me 6 -8 wks ekg w me next wk. thanks Hospital Course Summary Disclaimer: The visit summary below is not to be considered part of the above Progress Note. Hospital Course: 12/29/17 Admit, obs status. Dr. Dietrich attending. Workup ordered: CBC, CMP, trop x3, UA, TSH, CXR, EKG. Monitor on Tele. Consult Dr. Blackwood. Give diltiazem 10 mg IV x1. BP stable. Monitor blood sugars. Resume necessary home meds. Advanced Directives: +DPOA, +Living Will, DNR.
[2017-12-30 09:45] VITALS: RESP 16
[2017-12-30] MEDS: GABAPENTIN 800 MG TABLET PO SCH ×2 (11:41→15:03)
[2017-12-30] MEDS: GLIPIZIDE 2.5 MG PO SCH (11:43)
[2017-12-30] MEDS: CLOBETASOL 0.05% CREAM 15gm TOP SCH (11:44)
[2017-12-30] MEDS: ROPINIROLE 1 MG TABLET PO SCH (11:44)
[2017-12-30] MEDS: AMIODARONE 200 MG TABLET PO SCH (11:46)
--- NOTE | 2017-12-30 11:59 | Progress Note ---
- Date 12/30/17 Subjective: Andressa is seen today following COLTEN. She states that she is very tired but otherwise without complaints. Noted to be hypotensive 87/47 currently. Denies having chest pain, shortness of breath or dizziness. Telemetry reviewed- NSR. Objective Vital signs: Temperature 97.9 F 12/30/17 07:31 Pulse Rate 53 L 12/30/17 09:52 Respiratory Rate 16 12/30/17 09:52 Blood Pressure 85/43 12/30/17 09:52 Pulse Oximetry 95 12/30/17 09:52 Height/Weight/BMI: Height 1.55 m Weight 93.2 kg Body Mass Index 38.7 - Constitutional Present: no acute distress, well nourished, well developed - Routine HEENT Exam Eye: Present: EOMI ENT: Present: mucous membranes moist, dentition normal - Routine Respiratory Exam Present: CTA bilaterally. Absent: wheezes - Routine Cardiovascular Exam Present: RRR, S1, S2. Absent: murmur - Routine Abdominal Exam Present: soft, normoactive bowel sounds, non distended. Absent: tenderness - Routine Extremities Exam Present: normal capillary refill - Routine Skin Exam Present: intact, dry, warm - Routine Neurological Exam Present: alert, oriented X3, CN II-XII intact - Routine Lymphatic Exam Lymphatic: Absent: adenopathy - Routine Psychiatric Exam Present: normal affect Results - Labs CBC & Chem 7: 12/30/17 04:19 12/30/17 04:19 Assessment and Plan (1) Atrial fibrillation Current visit: No Status: Chronic Assessment and Plan: ASSESSMENT Atrial fibrillation with RVR, rates 130s Left chest pain Chronic diastolic/valvular CHF Diabetes mellitus with chronic diabetic nephropathy Restless leg syndrome COPD SWATI, CPAP use CKD stage III Stroke - 2014 HTN MDS Anemia - iron and Vit B12 def. Anxiety/depression Macular degeneration Obesity with BMI 38.8 12/30 Status post COLTEN cardioversion. Patient is quite tired following sedation medications. Noted to be Hypotensive currently, Will give a 500 mL bolus of normal saline over an hour. Continue to monitor blood pressures. Dr Blackwood recommends discontinuing metoprolol, continuing amiodarone and Pradaxa. Will need to follow-up with him in 6 weeks, EKG next week Will re-evaluate later today- may be able to discharge DVT Prophylaxis: Pradaxa Resuscitation Status: Do Not Resuscitate - Physician Narrative Physician: Fercho Stack MD Narrative: Date: 12/30/17 Time: 1614 Have independently interviewed & examined pt. Chart reviewed. 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 Care plan developed with my supervision; agree with above. Doing well this afternoon. Breathing easier. Not feeling chest pressure or heaviness; no palpitations. Eating well without nausea or ab pain. Denies feeling dizzy or unsteady with positional changes. Mentation clear. Lungs: decreased bilaterally, no distress CV: bradycardic, regular AB: soft nt /ns MSE: awake alert appropriate Plan: Medically stable for discharge. BP running low, but patient symptomatic. Would recommend monitoring. Advised gradual positional changes. Will f/u with Dr Roberts in [address] Blackwood in 6 weeks with EKG. See orders for details. Hospital Course Summary Disclaimer: The visit summary below is not to be considered part of the above Progress Note. Hospital Course: 12/29/17 Admit, obs status. Dr. Dietrich attending. Workup ordered: CBC, CMP, trop x3, UA, TSH, CXR, EKG. Monitor on Tele. Consult Dr. Blackwood. Give diltiazem 10 mg IV x1. BP stable. Monitor blood sugars. Resume necessary home meds. Advanced Directives: +DPOA, +Living Will, DNR. 12/30 Status post COLTEN cardioversion. Patient is quite tired following sedation medications. Noted to be Hypotensive currently, Will give a 500 mL bolus of normal saline over an hour. Continue to monitor blood pressures. Dr Blackwood recommends discontinuing metoprolol, continuing amiodarone and Pradaxa. Will need to follow-up with him in 6 weeks, EKG next week Will re-evaluate later today- may be able to discharge
[2017-12-30 13:06] VITALS: O2SAT 97
[2017-12-30] MEDS ORDERED: FALL RISK - PHARMACY CONSULT MC ONE (14:14)
[2017-12-30 15:54] VITALS: BP 96/53; PULSE 53
--- NOTE | 2017-12-30 16:02 | Extended Care Facility Orders ---
Admission Orders Admit to:: [facility] Allergies/Adverse Reactions: Allergies diltiazem Allergy (Unknown, Verified 12/29/17 13:52) flecainide Allergy (Unknown, Verified 12/29/17 15:53) nitrofurantoin Allergy (Unknown, Verified 12/29/17 13:52) ITCHING Admitting Diagnosis: AFIB WITH RVR - S/P COLTEN/Cardioversion Admitting Physician: Fercho Stack MD Attending Physician: Dr Robrets Code Status: Do Not Resuscitate Anticiapted Length of Stay: greater than 30 days Rehab Potential: fair Rehab Prognosis: fair Diet: Cardiac Diet [DIET] Sodium Restriction: 2GRAM Fat Content: LOW Wound/Incision Care: n/a May use Facility Protocol or Standing Orders: Yes May have flu vaccine: Yes Evaluations/Treatment: as needed [facility] Certification: I certify that SNF services are required to be given on an Inpatient basis because of the patients need for usp care on a continuing basis for the condition(s) for which he/she received inpatient hospital services prior to his/her transfer to the SNF. SNF inpatient care is necessary for the following reasons Indication for [facility]: Not Applicable - Additional Information In Event of Arrest: Do Not Start CPR Resident is Aware of Diagnosis: Yes Referrals: Lora Roberts DO [Primary Care Provider] - 1 Week (Hospital follow up for afib with RVR - had COLTEN/Cardioversion ) Vi Blackwood MD [Physician] - 5-6 Weeks (Hospital follow up for Afib/RVR - had COLTEN/Cardioversion. RECHECK EKG at that time. ) Additional Orders: Monitor BP and HR twice a day for 1 week secondary to cardioversion and medication adjustment. Continue prior blood sugar monitoring and treatements.
--- NOTE | 2017-12-30 19:58 | Discharge Summary ---
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 Anxiety/depression Macular degeneration Obesity with BMI 38.8 - Procedures Procedures: COLTEN/Cardioversion - Dr Blackwood -- 12/30/17 - Laboratory Labs: Admit Lab 12/29/17 15:38 WBC 4.8 Hgb 11.7 L Hct 36.7 MCV 101.9 H Plt Count 186 Neut % (Auto) 57.3 [place] % (Auto) 10.6 H Eos % (Auto) 4.6 H Baso % (Auto) 0.8 Admit Lab 12/29/17 12/29/17 15:35 15:38 Sodium 144 Potassium 4.2 Chloride 111 H Carbon Dioxide 24 Anion Gap 9 BUN 31.0 H Creatinine 1.1 GFR Calculation 49 BUN/Creatinine Ratio 28 H Glucose 86 Calculated Osmolality 283 H Calcium 8.6 Magnesium 2.4 H Total Bilirubin 0.30 AST 31 ALT 20 Alkaline Phosphatase 154 H Troponin I < 0.012 Total Protein 7.1 Albumin 3.6 Globulin 3.5 Albumin/Globulin Ratio 1.0 L TSH 2.46 12/30/17 04:19 12/30/17 04:19 - Radiology Radiology: Date of Exam: 12/29/17 Type of Exam: XR chest 2V Findings: The lungs are stable in appearance without new focal airspace consolidation. There is no pleural effusion or pneumothorax. The heart size, pulmonary vascularity and mediastinal contours are unchanged. Left upper quadrant surgical clips. IMPRESSION: Stable appearance of the chest without acute cardiopulmonary disease. History of Present Illness HPI: Andressa Berkowitz is a 72 y/o woman who states that she's had lightheadedness and a "strange feeling" that goes down her arms, for about a week. She reports that her pulse is usually "weird" - sometimes high and sometimes low, mostly slow. She's also had some left sided chest pain, described as a dull ache, intermittent in nature. She ate some corn chips about a week ago and since then has cut out salt - her weight went down from 205 to 202. She's noticing exertional dyspnea for a couple of weeks. She describes mild leg swelling. She denies palpitations. She's had occasional paresthesias to both arms. Vision has slowly worsened but no acute changes. Occasional headaches. No dysphagia. Chronic mild left sided weakness from an old stroke. Denies abd pain, n/v/d. She had C. diff about 2 months ago, treated x14 days - no diarrhea since. No dysuria or frequency. No fever/chills. No cough/cold sx. No rashes/unexplained bruising but does bruise easily (on Pradaxa for A-fib). She saw Dr. Blackwood in his clinic on 12/29/17 and was found to be in A-fib with RVR, rates 120s. She was admitted to the hospital, observation status, for further workup and treatment. For complete details of the H&P refer to that document. Objective Vital signs: Temperature 97.9 F 12/30/17 07:31 Pulse Rate 53 L 12/30/17 15:57 Respiratory Rate 16 12/30/17 09:52 Blood Pressure 96/53 12/30/17 15:54 Pulse Oximetry 97 12/30/17 13:06 Height/Weight/BMI: Height 1.55 m Weight 93.2 kg Body Mass Index 38.7 Hospital Course This is a general summary of the patient's hospital course. For more details refer to the complete medical record. Hospital course: 12/29/17 Admit, obs status. Dr. Dietrich attending. Workup ordered: CBC, CMP, trop x3, UA, TSH, CXR, EKG. Monitor on Tele. Consult Dr. Blackwood. Give diltiazem 10 mg IV x1. BP stable. Monitor blood sugars. Resume necessary home meds. Advanced Directives: +DPOA, +Living Will, DNR. 12/30/17 Serial troponin negative. Status post COLTEN cardioversion. Patient is quite tired following sedation medications. Noted to be Hypotensive currently, Will give a 500 mL bolus of normal saline over an hour. Continue to monitor blood pressures. Dr Blackwood recommends discontinuing metoprolol, continuing amiodarone and Pradaxa. Will need to follow-up with him in 6 weeks, EKG next week Will re-evaluate later today- may be able to discharge Clinically stable for discharge. See orders for details. Time spent with patient: discharge greater than 30 minutes Resuscitation Status: Do Not Resuscitate Discharge Plan - Discharge Disposition Discharge Date: 12/30/17 Disposition: 04 To [facility] Home/Facility *Condition: Stable Reason For Visit (Visit label in EMR): AFIB WITH RVR - Discharge Medications *Discharge Medications: New Amiodarone [Pacerone] 200 mg PO DAILY #30 tab Amiodarone [Pacerone] 400 mg PO BID #3 tab Continue Triamcinolone 0.25% Cream 15G [Kenalog] 1 applicatio TOP DAILY PRN #0 PRN Reason: DRY SKIN Cyanocobalamin (B-12) [Vit. B-12] 1,000 mcg IM MONTHLY #0 Nystatin Powder [Mycostatin] 1 applicatio TP BID CALCIUM CARBONATE Chewable [Tums Extra Strength] 750 mg PO QID PRN PRN Reason: Prn Orders Fluticasone Nasal [place] [Flonase] 1 spray EA NOSTRIL DAILY Ropinirole HCl 1 mg PO BID Acetaminophen [Tylenol] 650 mg PO Q4H PRN PRN Reason: Pain DiphenhydrAMINE [Benadryl] 1 cap PO Q6H PRN PRN Reason: Itching Lactobacillus Rhamnosus GG [Culturelle] 1 each PO DAILY Gabapentin [Neurontin] 800 mg PO TID Dabigatran [Pradaxa] 1 cap PO BID Pantoprazole Tab [Protonix] 1 mg PO HS glipiZIDE [Glipizide ER] 2.5 mg PO BID Multivitamin [One Daily] 1 each PO DAILY Ascorbic Acid 500 mg PO BID Urea/Allantoin/Vit E Acetate [Flexitol Heel [place] Cream] 56 gm TP HS Ceramides 1,3,6-11 [Cerave] 355 ml TP WEEKLY Alendronate [Fosamax 70 mg] 70 mg PO Q7D Ondansetron HCl [Zofran] 4 mg PO Q8H PRN PRN Reason: Vomiting Hydrocodone/APAP 5/325 [[place] 5/325] 1 tab PO Q6H PRN #20 tab PRN Reason: Pain Oxycodone/Acetaminophen 5/325 [Percocet 5/325] 1 tab PO Q6H PRN #20 tab PRN Reason: Pain Tramadol [Ultram] 50 mg PO Q6HR PRN #20 tab PRN Reason: Pain Arformoterol Neb [Brovana Neb] 15 mcg AEROSOL BID #0 Levothyroxine Sodium 125 mcg PO DAILY #0 Simvastatin 20 mg PO HS #0 buPROPion HCl [Wellbutrin Xl] 150 mg PO DAILY #0 Budesonide 0.5 mg AEROSOL Q12H Calcium 600 + D [Caltrate + D] 1 tab PO DAILY Celexa (citalopram) 20 mg tablet 30 mg PO DAILY tab melatonin 1 mg tablet 1 mg PO HS PRN tab PRN Reason: Sleep Claritin (Loratadine) 10 mg tablet 10 mg PO DAILY Lasix (Furosemide) 20 mg tablet 20 mg PO DAILY mentholatum ointment See Label Instructions TOP .COMPLEX clobetasol 0.05 % topical cream 1 applicatio TOP BID capsaicin 0.025 % topical cream 1 applicatio TOP QID No Action Amiodarone HCl 100 mg PO DAILY #0 loperamide 2 mg capsule 2 mg PO Q6H PRN cap PRN Reason: loose stool - Discharge Packet/Instructions *Diet: 9544-5005 ADA *Activity: As tolerated *Pain Management/Treatment: Tylenol 650mg every 5 hours as needed. *Wound Care: n/a *Expected Signs/Symptoms: Mild soreness in the throat or mild difficulty swallowing for 2-3 days. *Notify Physician if: Severe difficulty swallowing, severe chest pain, shortness of breath, fever, new persistent cough, phlegm production or throwing up blood. *During Business Hours Contact: *After Business Hours Contact: *Pending Lab/Results: No Pending Lab - Referrals/Follow Up *Referrals/Follow Up: Vi Blackwood MD [Physician] - 5-6 Weeks (Hospital follow up for Afib/RVR - had COLTEN/Cardioversion. RECHECK EKG at that time. ) Lora Roberts DO [Primary Care Provider] - 1 Week (Hospital follow up for afib with RVR - had COLTEN/Cardioversion ) - Patient Handouts Patient Handouts: A-fib (Atrial Fibrillation) (DC) - Dismissal Complete Discharge Instructions are:: Complete Physician Narrative - Narrative Physician: Fercho Stack MD Attestation Narrative: Date: 12/30/17 Time: 1954 I have independently interviewed and examined patient prior to discharge. See my progress note for details. Medically stable for discharge to home.
[2018-01-01] MEDS ORDERED: AMIODARONE 200 MG TABLET PO SCH (09:00)
--- NOTE | 2018-01-03 09:01 | Transesophageal Echocardiogram ---
DATE OF SERVICE: 12/30/2017 PROCEDURES PERFORMED 1. Transesophageal echocardiogram. 2. Moderate conscious sedation administered by independent staff, estimated time of 25 minutes. 3. DC cardioversion. INDICATION Recurrent symptomatic atrial fibrillation in a patient with mitral valve disease , congestive heart failure and prior history of a stroke. She is counseled on the indication, alternatives, risks and benefits of COLTEN cardioversion. She agreed to proceed. DESCRIPTION OF PROCEDURE The patient received Cetacaine spray to the oropharynx. IV sedation administered including IV Versed and fentanyl. Omniprobe was brought to the stomach. Transgastric, lower and mid transesophageal images of good quality were obtained. The procedure was well tolerated. There was no immediate complication. DC cardioversion was successfully done using 200 joules biphasic synchronized shock--placed the patient in sinus rhythm in the upper 50s. No immediate complications. FINDINGS 1. Cardiac Chambers: Left atrial enlargement is present. Other cardiac chambers appear normal in size and function. Visualized portion of the thoracic aorta exhibits scattered atherosclerotic plaque without aneurysm or dissection. 2. Left atrial septum exhibits separation between the primary and secondary leaflets with a color-flow signal indicative of a tiny [id number] shunt. Bubble study did not show reversal of the shunt. 3. Left atrial appendage appears free from any clot. Flow velocities were measured and unremarkable. 4. Valves: Aortic and mitral valve exhibit mild sclerotic changes. Tricuspid valve structure and motion appear normal with normal valve excursion. Aortic and mitral valve openings appear normal. 5. Doppler shows mild mitral regurgitation, very mild aortic regurgitation, trace tricuspid regurgitation. Doppler of the appendage shows preserved flow velocities, 40-60 cm/sec. Again, careful examination of the appendage does not reveal any evidence of clot. IMPRESSION 1. Left atrial enlargement. 2. Normal LV size and systolic function, EF of 60%. 3. Mild mitral regurgitation. 4. Very mild aortic regurgitation. 5. No left atrial/left atrial appendageal clot. 6. Successful DC cardioversion out of atrial fibrillation into sinus rhythm of 58 beats per minute. [facility]
== END 2017-12-30 16:48 ==
LOC: SRG → SUATTDRO 13:34
PROVIDERS: ADMIT Internal Medicine; ATTEND Hospitalist